=== PATIENT | female | born 1945 | race Caucasian/White ===

== ENCOUNTER 2020-03-30 09:30 | Outpatient (RCR) | payer MEDICARE, SELFPAY ==
--- NOTE | 2020-01-21 10:43 | PTOPEVAL ---
Addendum entered by Jagruti Ragland, PT 01/21/20 11:03: will plan for treatment 2-3x/week, to monitor changes and adapt treatments, as radiation treatments progress. Original Note: PHYSICAL THERAPY EVALUATION AND PLAN OF CARE 01-21-2020 The PT evaluation was completed and the plan of treatment is scheduled for 2x/week for 5 weeks. Thank you for referring Romina Del Cid to [facility]. Please review, sign, date and return this plan of care JAZ. I agree with and certify that the following plan of care is medically necessary. Referring Physician Date Attending Provider: Juan Manuel Webber MD *PT Outpatient Evaluation Start: 01/21/20 09:35 Document 01/21/20 09:35 [facility] (Rec: 01/21/20 10:42 [facility] [id number]) Outpatient Past Medical History Past Medical History Source of Past Medical History Patient Neurological History Hx Neurological Disorders No Significant History Cardiovascular History Hx Cardiac Disorders No Significant History Respiratory History Hx Respiratory Disorders No Significant History Gastrointestinal History Hx Gastrointestinal Disorders No Significant History Genitourinary History Hx Genitourinary Disorders No Significant History Musculoskeletal History Hx Musculoskeletal Disorders No Significant History Hematological History Hx Hematological Disorders No Significant History Endocrine History Hx Endocrine Disorders No Significant History HEENT History Hx Dental Problems Yes: UPPER PLATE, LOWER DENTURES Hx Other HEENT Disorders Yes: GLASSES Integumentary History Hx Skin Disorders No Significant History Reproductive History Hx Hormone Therapy Yes Hx Other Reproductive Disorders Yes: RT BREAST BX JUL 2019 = RT BREAST CA Psychosocial History Hx Recent Lifestyle Changes Yes: RT BREAST CA DX JUL 2019 Pain History History of Any Previous or Ongoing No Significant History Instance of Pain Anesthesia History Hx Anesthesia Reactions No Significant History Other History Hx Cancer Yes: RT BREAST CA DX JUL 2019 Evaluation Information Problem Diagnosis R breast lymphedema Onset Jul 2019 Prior Level of Function Activity Level (Last 3 Months) Occupation retired Hand Dominance Right Activity of Daily Living Ability Independent Indoor/Home Mobility Independent Community Mobility Independent Stairs Ability Independent Functional Cognition (Planning, Shopping Independent , Taking Medications) Cooking Yes Cleaning Yes Laundry Yes Shopping Yes Driving Yes Home Setting Home Type House
--- NOTE | 2020-02-25 10:59 | PTOPEVAL ---
PHYSICAL THERAPY REEVALUATION AND UPDATED PLAN OF CARE 02-25-2020 Mrs. Del Cid has received 11 PT sessions, from January 20 to today, for the diagnosis of R UE and trunk lymphedema. Compared to the initial evaluation: circumferential measurement of R UE has decreased by 16.8 cm; tissue of R UE is without any fibrosis and has good color; she has a compression sleeve for her R UE- is independent with it and it is comfortable to her; R shoulder AROM and strength have improved with all motions; her posterior trunk scar has improved mobility with decreased adhesions; there is minimal upper-lateral trunk edema. The radiation skin discoloration has increased--redness and brownish color over R anterior trunk, axilla, lateral trunk to posterior trunk, to superior aspect of trunk scar. The skin is moist, without any flaking. Romina is doing well managing her lymphedema: is wearing a compression bra, using swell pad over lateral trunk, wearing compression sleeve with 20-30 mmHg and doing her self lymph drainage and shoulder exercises. PT is to continue 1-2x/week for 5 weeks, to continue treatment as her radiation treatments continue. Thank you for referring Romina Del Cid to [facility]. Please review, sign, date and return this plan of care JAZ. I agree with and certify that the following plan of care is medically necessary. Referring Physician Date Attending Provider: Juan Manuel Webber MD CC: Carly Syed MD, per pt request *PT Outpatient Re-Evaluation Document 02/25/20 10:03 [facility] (Rec: 02/25/20 10:47 [facility] [id number]) Subjective Information Romina reports: stiff and Query Text:As Reported By Patient/ tight skin; sleeve and arm are Family doing well; radiation continues to March 14; is pleased with her improvements and wants to continue therapy. Pain Assessment Timing of Pain Assessment Timing of Pain Assessment Assessment Pain Scale Pain Scale Used Numeric (1 - 10) Self Report Pain Assessment Right Shoulder(s) Reported Pain Level 2 Pain Description Soreness,Tightness Pain Frequency Acute Other Pain Description skin is tight and stiff over shoulder and breast Pain Score Pain Score 2: Self Report Upper Extremity Range of Motion Scapular/ Shoulder Range of Motion Right Shoulder Flexion - Active 130 Shoulder Abduction - Active 120 Shoulder Medial Rotation - Active palm above waist Query Text:Reach Behind the Back Shoulder Lateral Rotation - Active palm to back of head Query Text:Reach Behind the Head Scapular/Shoulder Range of Motion no increase pain with shoulder Comments motions; elbow, wrist and hand WNL, no c/o pain; Lymphedema Evaluation Skin Inspection Location Right Upper Extremity,Right Anterior Lower Quadrant,Right
--- NOTE | 2020-03-30 10:09 | PTOPEVAL ---
PHYSICAL THERAPY DISCHARGE 03-30-2020 Mrs. Del Cid has received 16 PT sessions, from January 20 to today, for the diagnosis of lymphedema. She has a 20-30 mmHg compression sleeve for her R arm, which is maintaining her edema and wearing a compression bra with lateral swell pad. Her skin color has improved, but still has some radiation discoloration over anterior and lateral trunk. Education has been completed with Romina for lymphedema self care. Her R shoulder flexion and abduction active ranges of motion and strength have improved and she reports being able to do everything around the house. Thank you for referring Romina Del Cid to [facility]. Please review, sign, date and return this discharge JAZ. I agree with and certify that the following plan of care is medically necessary. Referring Physician Date Attending Provider: Juan Manuel Webber MD *PT Discharge Document 03/30/20 09:30 [facility]OS[facility] (Rec: 03/30/20 10:09 [facility] [id number]) Subjective Information Romina reports: arm and chest Query Text:As Reported By Patient/ are less sore and tender; Family doing exercises, using compression sleeve, doing all of her home chores without any problems; feels like ready for discharge from PT; Pain Assessment Timing of Pain Assessment Timing of Pain Assessment Assessment Self Report Self Report Pain Level 0 Pain Score Pain Score 0: Self Report Additional Pain Score Comments only slight tightness over arm and trunk; Upper Extremity Range of Motion General Upper Extremity Range of Motion Gross Upper Extremity Range of Motion active R shoulder in standing: Comments flexion 130', abduction 100', IR- reach behind back, hand above waist; ER- reach to back of head; elbow, wrist and hand WNL; Lymphedema Evaluation Skin Inspection Location Right Upper Extremity,Right Anterior Lower Quadrant,Right Anterior Upper Quadrant,Right Posterior Lower Quadrant,Right Posterior Upper Quadrant Skin Observations Hyperplasia,Radiation Discoloration Lymphedema Stage II Skin Inspection Comment R UE skin with good color and integrity; R trunk: anterior with minimal red-brown radiation discoloration; minimal ededma over upper-lateral trunk with adhesions along horizontal trunk scar; posterior trunk
== END 2020-04-05 11:34 | disposition home or self-care (01) ==
LOC: ANHPT 09:30
PROVIDERS: Visit Provider Radiology Radiation Oncology
DX: I97.2 Postmastectomy lymphedema syndrome (principal); C50.411 Malignant neoplasm of upper-outer quadrant of right female breast
CPT/HCPCS: 97110; 97140; 97162

== ENCOUNTER 2020-06-21 10:46 | Outpatient (CLI) | payer MEDICARE, SELFPAY ==
--- NOTE | ~2020-06-21 | PE_ITS ---
EXAMINATION: PET skull to mid thigh DATE: 06/21/2020 13:19 INDICATION: Right breast cancer with axillary lymphadenopathy TECHNIQUE: Blood glucose level was 100 mg/dL. 8.84 mCi of 18-fluorodeoxyglucose (18-FDG) was administ ered i.v. Low dose computed tomography (CT) images were acquired from the base of the brain to the pr oximal thighs for attenuation correction and anatomic localization. Positron emission tomography (PET ) images were acquired in the same distribution beginning 77 minutes after injection. The dose-length product (DLP) was 691 mGy-cm. COMPARISON: 08/18/2019 FINDINGS: Head/neck: No abnormal FDG uptake is identified. FDG activity in the oral cavity without suspicious C T correlate is likely physiologic. Chest: There are changes of interval right mastectomy and axillary lymph node dissection. There are t wo areas of surgical clips in the right axilla. There is ill-defined soft tissue density surrounding the more cranial axillary surgical clips with low-level FDG uptake and SUV max of 3.2. There is an ap proximately 3.8 x 1.4 cm area of intermediate attenuation in the right lateral chest wall/low axillar y region with associated more caudal surgical clips which demonstrates SUV uptake with an SUV max of 7.8. There is skin thickening of the right chest wall with mild associated FDG uptake. A small right pleural effusion is present. There is volume loss in the right hemithorax. There are subpleural airsp patric opacities in the anterior aspect of the right lung as well as posteriorly in the right lower lobe which demonstrate associated FDG uptake. The heart size is normal. There is no pneumothorax. A left internal jugular Port-A-Cath ends with its tip in the proximal superior vena cava. Abdomen/pelvis/proximal thighs: Physiologic FDG activity is present in the bowel and urinary tract. N o abnormal FDG uptake is identified. The liver, spleen, pancreas, adrenal glands, and kidneys are nor mal. No pathologically enlarged abdominal or pelvic lymph nodes are identified. There is no free intr aperitoneal gas or evidence of bowel obstruction. 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 IMPRESSION: 1. Changes of interval mastectomy and right axillary lymph node dissection. Mild FDG uptake adjacent to the more cranial of the right axillary surgical clips is likely post surgical in nature. FDG activ ity surrounding the more caudal of the surgical clips is indeterminate, postsurgical versus residual malignancy. 2. Subpleural airspace opacities of the right lung with FDG uptake, likely inflammatory and/or radiat ion change. 3. Small right pleural effusion. Reviewed, dictated and finalized at location B. IMPRESSION: 1. Changes of interval mastectomy and right axillary lymph node dissection. Mil d FDG uptake adjacent to the more cranial of the right axillary surgical clips is likely post surgical in nature. FDG activity surrounding the more caudal of the surgical clips is indeterminate, postsurgical versus residual malignancy. 2. Subpleural airspace opacities of the right lung with FDG uptake, likely infl ammatory and/or radiation change. 3. Small right pleural effusion.
[2020-06-21 11:31] LABS: Glucose Point of Care 100 (65-105)
== END 2020-06-21 10:47 | disposition home or self-care (01) ==
LOC: ANHIMG 10:51
PROVIDERS: Visit Provider Internal Medicine Hematology & Oncology
DX: C50.919 Malignant neoplasm of unspecified site of unspecified female breast (principal); J90 Pleural effusion, not elsewhere classified; R91.8 Other nonspecific abnormal finding of lung field
CPT/HCPCS: 78815; A9552

== ENCOUNTER 2020-11-10 07:24 | Outpatient (CLI) | payer MEDICARE, SELFPAY ==
--- NOTE | ~2020-11-10 | CT_ITS ---
EXAMINATION: CT chest abdomen pelvis w con EXAM DATE: 11/10/2020 08:12 INDICATION: Malignant neoplasm, metastatic to lymph node of axilla. Breast cancer. TECHNIQUE: Spiral CT of the chest, abdomen and pelvis was performed following intravenous injection o f 100 mL Omnipaque 350. Axial, coronal and sagittal images were reviewed. Coronal maximum intensity pixel images of chest reviewed. The dose-length product (DLP) for this examination was 985.82 mGy-c m. The exposure was tailored according to patient size (auto mA exposure control), and iterative rec onstruction (ASIR) was used as additional dose reduction technique. Comparison is made to prior exami nation from 07/18/2019. Correlation was made with PET/CT 06/21/2020. FINDINGS: CHEST: There is a left-sided Chemo-Port. Surgical changes from right-sided mastectomy and axillary l ymph node dissection appears stable correlating to PET/CT from June. There is near resolution of previously seen confluent peripheral right lung opacity and right pleural effusion. There is scatter ed bilateral regions of small ill-defined peripheral opacities which are new compared to prior study; patient may have had interval infectious process, possibly subacute to chronic COVID pneumonia. No p ericardial or left pleural effusions. Tracheobronchial tree is patent. There is no mediastinal, hi lar or axillary lymphadenopathy. There is no pneumothorax. Heart normal in size. No evidence of coronary arterial calcification. There is small sliding gastroesophageal hiatal hernia. ABDOMEN PELVIS: The liver, spleen, adrenal glands and pancreas are unremarkable. Gallbladder is unre markable. No biliary obstruction. Portal and splenic veins are patent. Kidneys enhance symmetrical ly. There is no hydronephrosis. The uterus is unremarkable. Dilated left gonadal veins could indic ate pelvic congestion syndrome. The bladder is unremarkable. There is no retroperitoneal or pelvic lymphadenopathy. There is mild scattered arteriosclerotic disease. The appendix is normal. The stomach and small bowel are unremarkable. There is expected amount of c olonic stool. No free intraperitoneal gas. There are no osteoblastic or osteolytic lesions identi fied. Mild to moderate lumbar dextroscoliosis. IMPRESSION: 1. Development of scattered small peripheral opacities, possible subacute or chronic COVID pneumonia . 2. Previously seen right peripheral anterior airspace disease which could have been treatment relate d change or infection, and right pleural effusions have nearly resolved. 3. Chronic findings without definite metastatic disease. Reviewed, dictated and finalized at location A. PER REWINDER IMPRESSION: 1. Development of scattered small peripheral opacities, possible subacute or c hronic COVID pneumonia. 2. Previously seen right peripheral anterior airspace disease which could have been treatment related change or infection, and right pleural effusions have n early resolved. 3. Chronic findings without definite metastatic disease.
== END 2020-11-10 07:25 | disposition home or self-care (01) ==
PROVIDERS: Visit Provider Internal Medicine Hematology & Oncology
DX: C77.3 Secondary and unspecified malignant neoplasm of axilla and upper limb lymph nodes (principal); R91.8 Other nonspecific abnormal finding of lung field
CPT/HCPCS: 71260; 74177; Q9967

== ENCOUNTER 2021-01-25 09:24 | Outpatient (CLI) | payer MEDICARE, SELFPAY ==
--- NOTE | ~2021-01-25 | MM_ITS ---
EXAMINATION: MM screening paul LT w cheryl HISTORY: Screening TECHNIQUE: Craniocaudal and mediolateral oblique 3-D tomosynthesis images were obtained and synthetic 2-D images were generated. CAD analysis was submitted and interpreted. COMPARISON: Comparison to multiple prior studies sequentially, with oldest reviewed study dated 07/15. BREAST PARENCHYMAL COMPOSITION: There are scattered areas of fibroglandular density. FINDINGS: The right breast is surgically absent. There is no evidence of suspicious mass, calcificati on, or architectural distortion to suggest malignancy in the left breast. There has been no suspiciou s interval change. IMPRESSION: 1. No mammographic evidence of malignancy. 2. Recommend routine screening mammography in one year. BI-RADS Category 1: Negative Reviewed, dictated and finalized at location A.
== END 2021-01-25 09:25 | disposition home or self-care (01) ==
LOC: ANHIMG 09:26
PROVIDERS: PCP Internal Medicine Hematology & Oncology; Visit Provider Radiology Radiation Oncology
DX: Z12.31 Encounter for screening mammogram for malignant neoplasm of breast (principal); Z85.3 Personal history of malignant neoplasm of breast
CPT/HCPCS: 77063; 77067

== ENCOUNTER 2021-04-24 03:13 | Day surgery (SDC) | payer MEDICARE, SELFPAY ==
[2021-04-20 11:45] VITALS: BMI 28.5
--- NOTE | 2021-04-24 08:18 | PM.HPGS ---
History of Present Illness History of Present Illness Consent: Risks, benefits, and alternatives of removal of a Port-A-Cath have been discussed and questions answered. Patient agrees to proceed with procedure. Chief complaint: Breast CA Narrative: Romina Del Cid is a 75 year old female who has been following with Dr. Valorie cedeno. 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 She had a port and then chemotherapy with Cytoxan and Taxotere started September 2019 and completed in November of 2019. She has since that time continue I brands and Arimidex. She is doing well and no longer in need of the Port-A-Cath. Review of Systems Constitutional: Constitutional: Reports no additional constitutional complaints, Reports fatigue and Denies malaise Eyes: Eyes: Denies change in vision and Denies loss of vision ENT: Reports Normal hearing present, Denies change in voice, Denies dizziness, Denies hoarseness and Denies sore throat Cardiovascular: Cardiovascular: Denies chest pain, Denies leg edema and Denies dyspnea Respiratory: Respiratory: Denies cough, Denies dyspnea and Denies wheezing Gastrointestinal: Gastrointestinal: Denies hematochezia, Denies change in bowel habits and Denies heartburn Genitourinary: Genitourinary: Denies urinary frequency and Denies urinary incontinence Integumentary/Breasts: Comments: Patient has been fighting breast cancer since 2018. She had a mastectomy on the right in December of 2019. Since that time she has had chemotherapy and radiation treatments to the right chest wall. Neurologic: Reports Normal hearing present, Denies confusion, Denies dizziness, Denies loss of vision, Denies memory loss and Denies seizure-like activity Psychiatric: Psychiatric: Denies confusion, Denies depression and Denies memory loss Endocrine: Endocrine: Denies cold intolerance and Reports fatigue Hematologic/Lymphatic: Hematologic/Lymphatic: Denies easy bleeding and Denies easy bruising Comments: History of anemia followed by Dr. Del Real. Allergic/Immunologic: Allergic/Immunologic: Denies wheezing PMFSH Past Medical History Medical History (Updated 04/24/21 @ 08:36 by Matthew Johnston MD) Anemia Breast CA (~07/2019) Port-A-Cath in place Surgical History Surgical History (Updated 04/24/21 @ 08:29 by Matthew Johnston MD) Hx of right mastectomy Social History Social History Smoking status: Never smoker Alcohol intake: current Drinks per week: 3 Living arrangements: with family Gender identity (if verbalized by the patient): Female Spiritual care concerns: No Meds Home Medications and Allergies Home Medications Medication Instructions Recorded Confirmed Type turmeric root extract 500 mg PO BID 08/26/19 04/24/21 History anastrozole [Arimidex] 1 mg PO DAILY 06/01/20 04/24/21 History palbociclib [Ibrance] 125 mg PO DAILY 08/31/20 04/24/21 History ferrous sulfate 325 mg PO DAILY 04/20/21 04/24/21 History multivitamin,[id number] 1 tablet PO DAILY 04/20/21 04/24/21 History [Complete Multivitamin] Allergies Allergy/AdvReac Type Severity Reaction Status Date / Time No Known Allergies Allergy Verified 04/20/21 11:34 Exam Const: General: cooperative, healthy appearing, no acute distress, well developed and alert; No confusion Nutritional Appearance: well nourished Orientation/consciousness: patient oriented x3 and No confusion Limitations: no limitations HENMT: Head: normal to inspection, normocephalic and atraumatic Ears: hearing grossly normal bilaterally General nose exam: Normal external nose present Face and sinus: no edema Mouth: Yes Normal oral and palatal mucosa present and Yes lip normal Throat: posterior oropharynx normal Eyes: General: appearance normal, both eyes and all related structures Sclera: sclerae normal Pupils: Equal, round
[2021-04-24 13:10] VITALS: BP 174/88; PULSE 77; RESP 0; TEMP 36.2; O2SAT 100
--- NOTE | 2021-04-24 14:15 | WPDHPUPDATE1 ---
History and Physical Update Update Date/Time: 04/24/21 14:15 History and Physical has been reviewed, including an updated exam of the patient. There are NO changes in the patient's condition. Risks, benefits, and alternatives have been discussed and questions answered. Patient agrees to proceed with procedure.
[2021-04-24 14:44] VITALS: BP 200/95; PULSE 70; RESP 16; O2SAT 100
[2021-04-24] MEDS: LIDO 1%/EPINEPHRINE 1:100,000 20 ML VIAL 10 ML INFILTRATE (14:48)
[2021-04-24 14:50] VITALS: BP 219/90; PULSE 70; RESP 20; O2SAT 99
[2021-04-24 15:04] VITALS: BP 219/92; PULSE 70; RESP 20; O2SAT 100
[2021-04-24 15:12] VITALS: BP 184/86; PULSE 67; RESP 16; O2SAT 100
--- NOTE | 2021-04-24 15:21 | P.OP_ITS ---
Procedure Note - Detailed Date of Procedure 04/24/21 Pre-op Diagnosis Breast CA Post-op Diagnosis same Procedure Performed Removal of [place]-cath Surgeon Matthew Johnston MD Greige Goods Inspector [ ] RN, OR Vault Installer Anesthesia MAC and local (2% Xylocaine with Epi) Indications Patient has had a Port-A-Cath in for chemotherapy in the past. Now no longer in use and when attempted to be flushed recently was plugged. Plant to remove under local anesthetic. Findings Unremarkable port and catheter upon removal. blue Prolene stitches anchoring the port were also removed. Description of Procedure Prior to the procedure the patient was seen in the holding area and the area of proposed surgery was marked. All questions were answered and the patient wished to proceed with removal of the Port-A-Cath. The patient was brought to the operating room and placed supine. The entire left neck, chest, and shoulder were prepped with chlorhexidine. The area was draped off. Time-out was performed confirming patient and site of surgery. Following this a 15 blade knife was used to make incision directly on the scar from the previous port placement. This was done after infiltrating local anest hetic into the area of and inferior to the scar and into the area of the pocket containing the port to some degree using 1% xylocaine with epinephrine. Following this we carefully dissected down to the junction of the port and catheter. Bovie cautery with needle-tip was used to carefully incise the capsule around the port and free up the scar tissue around the junction of the port and catheter. Two Prolene sutures that were holding the port to the underlying fascia were carefully excised with a 15 blade knife and mosquito hemostats. Following this the port was brought up and out of the pocket. Then watching the patient's respirations I carefully removed the catheter in one smooth pull while applying pressure in the lower right neck area at the catheter exit site as the patient was breathing out. Pressure was held for 1 minute. I used Bovie cautery on some the subcutaneous tissues as we waited for good clotting. Again hemostasis was checked in the wound using Bovie cautery for s uperficial hemostasis in the subcutaneous tissues. Following this closure was obtained with 2 layers. I used buried subcutaneous sutures of 3-0 Vicryl in the subcutaneous layer followed by a running subcuticular closure of 4-0 Monocryl on the skin. Patient tolerated the procedure well. Estimated blood loss was 3 cc Sponge, needle, and instrument counts were correct at the end the procedure and patient was taken to the outpatient recovery area in good condition. Implants none Estimated Blood Loss 3 Drains No Packing No Pathology none sent Complications No immediate complications Condition stable Disposition same day
[2021-04-24 15:33] VITALS: BP 161/77; PULSE 68
== END 2021-04-24 15:48 | disposition home or self-care (01) ==
PROVIDERS: PCP Internal Medicine Hematology & Oncology; Visit Provider Surgery
PROC: (CPT 36589; principal; 2021-04-24 14:00)
DX: Z45.2 Encounter for adjustment and management of vascular access device (principal); Z85.3 Personal history of malignant neoplasm of breast; Z92.21 Personal history of antineoplastic chemotherapy; D64.9 Anemia, unspecified; Z90.11 Acquired absence of right breast and nipple
CPT/HCPCS: 36590

== ENCOUNTER 2021-09-14 08:53 | Outpatient (CLI) | payer MEDICARE, SELFPAY ==
--- NOTE | ~2021-09-14 | CT_ITS ---
EXAMINATION: CT diagnostic chest w con EXAM DATE: 09/14/2021 09:22 INDICATION: Malignant neoplasm metastatic to lymph node of axilla. TECHNIQUE: Spiral CT of the chest following intravenous injection of 75 mL Omnipaque 350. Axial, cor onal and sagittal images of the chest were reviewed. Coronal maximum intensity pixel images of chest reviewed. The dose-length product (DLP) for this examination was 172.51 mGy-cm. The exposure was t ailored according to patient size (auto mA exposure control), and iterative reconstruction (ASIR) was used as additional dose reduction technique. Comparison is made to prior examination from 11/10/2020. FINDINGS: Postoperative changes to the right breast and axilla without discrete lymphadenopathy ident ified. Soft tissue surrounding the right axillary lymph nodes probably scar tissue does not appear si gnificantly changed. There are scattered regions of peripheral airspace disease on previous examination, mostly resolved. Only small region of persistent airspace disease in the left lower lobe today, probably postinfectiou s. There is mild emphysema and hyperinflation. Mild ectasia of the ascending aorta at 4.3 cm. There are no pleural or pericardial effusions. Tracheobronchial tree is patent. There is no mediastinal , hilar or axillary lymphadenopathy. There is no pneumothorax. Heart normal in size. There is s mall sliding gastroesophageal hiatal hernia. Patient has diffuse idiopathic skeletal hyperostosis. IMPRESSION: 1. No evidence of metastatic disease. 2. Stable right breast, axillary surgical changes. 3. Mild emphysema and hyperinflation. 4. Mild ascending aortic ectasia. 5. Small hiatal hernia. Reviewed, dictated and finalized at location A. EL ACCOMMODATION INSPECTOR
[2021-09-14 09:12] LABS: Estimated Glomerular Filt Rate 54
== END 2021-09-14 08:54 | disposition home or self-care (01) ==
LOC: ANHIMG 08:57
PROVIDERS: PCP Internal Medicine Hematology & Oncology; Visit Provider Internal Medicine Hematology & Oncology
DX: C77.3 Secondary and unspecified malignant neoplasm of axilla and upper limb lymph nodes (principal); J43.9 Emphysema, unspecified; K44.9 Diaphragmatic hernia without obstruction or gangrene; R91.8 Other nonspecific abnormal finding of lung field
CPT/HCPCS: 71260; Q9967

== ENCOUNTER 2022-02-01 08:40 | Outpatient (CLI) | payer MEDICARE, SELFPAY ==
--- NOTE | ~2022-02-01 | MM_ITS ---
EXAMINATION: MM screening paul LT w cheryl HISTORY: Screening mammogram TECHNIQUE: Craniocaudal and mediolateral oblique 3-D tomosynthesis images were obtained and synthetic 2-D images were generated. CAD analysis was submitted and interpreted. COMPARISON: 01/25/2021 left screening mammogram 09/01/2019 diagnostic left mammogram and limited left breast ultrasound examination 08/07/2019 left screening mammogram BREAST PARENCHYMAL COMPOSITION: There are scattered areas of fibroglandular density. FINDINGS: There is no evidence of suspicious mass, calcification, or architectural distortion to sugg est malignancy in either breast. There has been no suspicious interval change. IMPRESSION: 1. No mammographic evidence of malignancy. 2. Recommend routine screening mammography in one year. BI-RADS Category 1: Negative Reviewed, dictated and finalized at location A.
== END 2022-02-01 08:41 | disposition home or self-care (01) ==
LOC: ANHIMG 08:43
PROVIDERS: PCP Internal Medicine Hematology & Oncology; Visit Provider Internal Medicine Hematology & Oncology
DX: Z12.31 Encounter for screening mammogram for malignant neoplasm of breast (principal)
CPT/HCPCS: 77063; 77067

== ENCOUNTER 2022-02-08 09:31 | Outpatient (CLI) | payer MEDICARE, SELFPAY ==
--- NOTE | ~2022-02-08 | CT_ITS ---
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 Additional 3D reconstructions utilizing coronal maximum intensity projection (MIP) were per formed. Automated exposure control and iterative reconstruction technique were employed. The dose-ricci gth product was 223.66 mGy-cm. COMPARISON: 09/14/2021 FINDINGS: Postoperative change of prior right mastectomy and associated right axillary lymph node dissection. T here is minimal peripheral likely radiation fibrosis along the anterior right upper lobe. There are c ouple small calcified nodules in the left lung consistent with old granulomatous disease. No pneumoni a, suspicious pulmonary nodules, pulmonary edema or pleural effusion. Heart size is normal. No perica rdial effusion. Mild fusiform ectasia of the ascending thoracic aorta measuring 4.2 x 4.2 cm in maxim al diameter. Normal caliber aortic arch and descending thoracic aorta. No dissection. No pathological ly enlarged thoracic lymphadenopathy. Small sliding-type hiatal hernia. Unchanged subcentimeter cyst at the upper pole of the right kidney. There are bridging osteophytes at multiple levels in the spine , consistent with diffuse idiopathic skeletal hyperostosis (DISH). IMPRESSION: 1. Ectatic ascending thoracic aorta measuring up to 4.2 cm in maximal diameter. 2. Postoperative change of prior right mastectomy and axillary lymph node dissection with likely mini mal radiation fibrosis along the anterior right upper lobe. 3. Small sliding-type hiatal hernia. Reviewed, dictated and finalized at location B. IMPRESSION: 1. Ectatic ascending thoracic aorta measuring up to 4.2 cm in maximal diameter. 2. Postoperative change of prior right mastectomy and axillary lymph node disse ction with likely minimal radiation fibrosis along the anterior right upper lob e. 3. Small sliding-type hiatal hernia.
== END 2022-02-08 09:32 | disposition home or self-care (01) ==
PROVIDERS: PCP Internal Medicine Hematology & Oncology; Visit Provider Internal Medicine Hematology & Oncology
DX: C77.3 Secondary and unspecified malignant neoplasm of axilla and upper limb lymph nodes (principal); I77.810 Thoracic aortic ectasia; Z98.890 Other specified postprocedural states; Z90.11 Acquired absence of right breast and nipple; K44.9 Diaphragmatic hernia without obstruction or gangrene
CPT/HCPCS: 71260; Q9967

== ENCOUNTER 2022-03-22 11:56 | Outpatient (CLI) | payer MEDICARE, SELFPAY ==
[2022-03-22 16:26] LABS: Alanine Aminotransferase 17 U/L (6-35); Albumin Level 4.3 g/dL (3.5-5.1); Alkaline Phosphatase 94 U/L (38-126); Anion Gap 5 mmol/L (8-16); Aspartate Amino Transferase 21 U/L (14-36); Blood Urea Nitrogen 14 mg/dL (7-17); Calcium 9.9 mg/dL (8.4-10.2); Carbon Dioxide 27 mmol/L (22-30); Chloride 103 mmol/L (98-107); Estimated Glomerular Filt Rate > 60; Glucose 91 mg/dL (65-110); Potassium 4.8 mmol/L (3.4-5.0); Sodium 135 mmol/L (137-145)
[2022-03-25 05:25] LABS: CA 15-3 16 U/mL (<32)
== END 2022-03-22 11:57 | disposition home or self-care (01) ==
LOC: ANHLAB 11:58
PROVIDERS: PCP Internal Medicine Hematology & Oncology; Visit Provider Internal Medicine Hematology & Oncology
DX: C77.3 Secondary and unspecified malignant neoplasm of axilla and upper limb lymph nodes (principal)
CPT/HCPCS: 36415; 80053; 86300

== ENCOUNTER 2022-03-29 12:21 | Outpatient (CLI) | payer MEDICARE, SELFPAY ==
[2022-03-29 12:46] LABS: Basophils Percent Auto 1.6 % (0.2-1.2); Eosinophils Absolute Auto 0.1 K/mm3 (0-0.3); Eosinophils Percent Auto 2.6 % (0-4.4); Hematocrit 34.1 % (37.0-47.0); Hemoglobin 11.8 g/dL (12.0-15.0); Immature Granulocyte Absolute 0.01 K/mm3 (0.00-0.031); Immature Granulocyte Percent A 0.5 % (0-0.5); Lymphocytes Absolute Auto 0.36 K/mm3 (0.9-3.2); Lymphocytes Percent Auto 18.8 % (18.3-44.2); Mean Corpuscular HGB Conc 34.6 g/dl (32-36); Mean Corpuscular Hemoglobin 38.4 pg (26-34); Mean Corpuscular Volume 111.1 fl (80-100); Mean Platelet Volume 9.9 fl (7.4-10.4); Monocytes Absolute Auto 0.2 K/mm3 (0.1-0.6); Monocytes Percent Auto 10.9 % (2.6-8.5); Neutrophils Absolute Auto 1.3 K/mm3 (1.3-6.7); Neutrophils Percent Auto 65.6 % (45.5-73.1); Platelet Count Result 128 k/mm3 (150-375); Red Blood Count 3.07 M/mm3 (4.2-5.4); Red Cell Distribution Width 13.7 % (11.5-14.5)
[2022-03-29 12:48] LABS: White Blood Count 1.9 K/mm3 (4.5-10.0)
== END 2022-03-29 12:22 | disposition home or self-care (01) ==
LOC: ANHLAB 12:23
PROVIDERS: PCP Internal Medicine Hematology & Oncology; Visit Provider Internal Medicine Hematology & Oncology
DX: C77.3 Secondary and unspecified malignant neoplasm of axilla and upper limb lymph nodes (principal)
CPT/HCPCS: 36415; 85025

== ENCOUNTER 2022-05-31 10:05 | Outpatient (CLI) | payer MEDICARE, SELFPAY ==
--- NOTE | ~2022-05-31 | CT_ITS ---
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 TECHNIQUE: Computed tomography (CT) of the chest was performed with 75 mL Omnipaque 350 intravenous c ontrast. Automated exposure control and iterative reconstruction technique were employed. The dose-le ngth product (DLP) was 159.89 mGy-cm. COMPARISON: Chest CT 02/08/2022 FINDINGS: There is mild peripheral radiation fibrosis in anterolateral right lung. There is mild scar ring in paraspinal right lower lobe. Calcified pulmonary nodules are consistent with old granulomatou s disease. No pleural effusion. The heart size is normal. No pericardial effusion. There are surgical changes of right mastectomy. There is fat stranding and skin thickening in the right breast and righ t axilla, consistent with changes of surgery and radiation therapy. There are no pathologically enlar ged lymph nodes. There is stable ectasia of ascending aorta measuring 4.4 cm. There are bridging endp late osteophytes at multiple levels in the spine, consistent with diffuse idiopathic skeletal hyperos tosis (DISH). There is mild chronic anterior wedging of multiple thoracic vertebral bodies. IMPRESSION: 1. No specific evidence of metastatic disease. Reviewed, dictated and finalized at location A.
== END 2022-05-31 10:06 | disposition home or self-care (01) ==
PROVIDERS: PCP Internal Medicine Hematology & Oncology; Visit Provider Internal Medicine Hematology & Oncology
DX: C77.3 Secondary and unspecified malignant neoplasm of axilla and upper limb lymph nodes (principal)
CPT/HCPCS: 71260; Q9967

== ENCOUNTER 2022-08-23 09:39 | Outpatient (CLI) | payer MEDICARE, SELFPAY ==
--- NOTE | ~2022-08-23 | DEXA_ITS ---
Bone Density Report Name: SORAYA OTERO Age: 77 Sex: Female Ethnicity: White Date of : 1945 Indication: postmenopausal; screening for osteoporosis; height loss; cancer; Referring Provider: STEPHANIE CARNES Study: Bone densitometry was performed. Exam Date: August 23, 2022 Accession number: [id number] Bone Density: Region BMD T-score Z-score Classification AP Spine(L1-L4) 1.142 0.9 3.4 Normal Femoral Neck (Left) 0.726 -1.1 1.1 Osteopenia Total Hip (Left) 0.838 -0.9 1.0 Normal Femoral Neck (Right) 0.745 -0.9 1.2 Normal Total Hip (Right) 0.873 -0.6 1.3 Normal Total Hip Mean 0.856 -0.8 1.2 Normal World Health Organization criteria for BMD impression classify patients as: Normal (T-score at or above -1.0), Osteopenia (T-score between -1.0 and -2.5), or Osteoporosis (T-score at or below -2.5). 10-year Fracture Risk(1): Major Osteoporotic Fracture 11% Hip Fracture 1.9% Reported Risk Factors: [place] (), Neck BMD=0.726, BMI=30.1 (1) FRAX(R) Version 3.08. Fracture probability calculated for an untreated patient. Fracture probability may be lower if the patient has received treatment. Clinical Information Provided by Patient: Has the following medical conditions: Cancer, hx of BCA Patient maximum height was 66 Menopause Age: 40 Onset of menses at age 12 Number of children 2 Impression: The patient has low bone mass, based on the Left Femoral Neck T-score. The patient has an estimated ten-year risk of hip fracture of 1.9% and an estimated ten-year risk of major fracture of 11%, based on the WHO FRAX algorithm. Discussion: BONE DENSITY IS LOW AT ONE OR MORE SKELETAL SITES. This patient's lowest T-score is low at one or more skeletal sites. It meets the World Health Organization's (WHO) criteria for ?low bone mass? (T-score between -1.0 and -2.5). The patient's 10-year risk of fracture as calculated by FRAX is less than the threshold where pharmacological therapy is recommended by the National Osteoporosis Foundation (NOF). However, all treatment decisions require clinical judgment and consideration of individual patient factors, including patient preferences, comorbidities, previous drug use, risk factors not captured in the FRAX model (e.g., frailty, falls, vitamin D deficiency, increased bone turnover, interval significant decline in bone density) and possible under or overestimation of fracture risk by FRAX. The patient should follow a healthful lifestyle (good nutrition with adequate calcium and vitamin D, and appropriate weight-bearing exercise). Follow-Up: Consider repeating this study in 2 to 3 years to reassess this patient's status, or sooner if there is some new clinical indication. Reported by: LAZARA on 08/23/2022 10:09:00 AM.
== END 2022-08-23 09:40 | disposition home or self-care (01) ==
PROVIDERS: PCP Internal Medicine Hematology & Oncology; Visit Provider Internal Medicine Hematology & Oncology
DX: M85.852 Other specified disorders of bone density and structure, left thigh (principal)
CPT/HCPCS: 77080

== ENCOUNTER 2022-11-22 11:13 | Outpatient (CLI) | payer MEDICARE, SELFPAY ==
[2022-11-22 21:18] LABS: Cholesterol 227 mg/dL (0-200); HDL Direct 100 mg/dL; Triglycerides 68 mg/dL (<150)
[2022-11-22 21:28] LABS: LDL Cholesterol Direct 81 mg/dL
== END 2022-11-22 11:14 | disposition home or self-care (01) ==
LOC: ANHLAB 11:22
PROVIDERS: PCP Emergency Medicine; Visit Provider Emergency Medicine
DX: I10 Essential (primary) hypertension (principal); Z92.3 Personal history of irradiation
CPT/HCPCS: 36415; 80053; 80061; 84443; 85025; 86300

== ENCOUNTER 2023-02-05 10:29 | Outpatient (CLI) | payer MEDICARE, SELFPAY ==
--- NOTE | ~2023-02-05 | MM_ITS ---
EXAMINATION: MM screening paul LT w cheryl HISTORY: Screening mammogram TECHNIQUE: Craniocaudal and mediolateral oblique 3-D tomosynthesis images were obtained and synthetic 2-D images were generated. CAD analysis was submitted and interpreted. COMPARISON: February 01, 2022, January 25, 2021 bilateral screening mammogram examination BREAST PARENCHYMAL COMPOSITION: There are scattered areas of fibroglandular density. FINDINGS: There is no evidence of suspicious mass, calcification, or architectural distortion to sugg est malignancy in either breast. There has been no suspicious interval change. IMPRESSION: 1. No mammographic evidence of malignancy. 2. Recommend routine screening mammography in one year. BI-RADS Category 1: Negative Reviewed, dictated and finalized at location A.
== END 2023-02-05 10:30 | disposition home or self-care (01) ==
PROVIDERS: PCP Emergency Medicine; Visit Provider Internal Medicine Hematology & Oncology
DX: Z12.31 Encounter for screening mammogram for malignant neoplasm of breast (principal)
CPT/HCPCS: 77063; 77067

== ENCOUNTER 2023-03-04 09:30 | Outpatient (CLI) | payer MEDICARE, SELFPAY ==
--- NOTE | ~2023-03-04 | CT_ITS ---
EXAMINATION:CT diagnostic chest w con DATE: 03/04/2023 10:03 INDICATION: Malignant neoplasm metastatic to lymph node of axilla. TECHNIQUE: Computed tomography (CT) of the chest was performed with 75 mL Omnipaque 350 intravenous c ontrast. Automated exposure control and iterative reconstruction technique were employed. The dose-le ngth product (DLP) was 224.70 mGy-cm. COMPARISON: Chest CT 05/31/2022 FINDINGS: There is mild scarring in paraspinal right lower lobe. There is minimal atelectasis bilater ally. No pleural effusion. The heart size is normal. No pericardial effusion. There is ectasia of asc ending aorta measuring 4.3 cm . There are surgical changes of right breast and right anterior chest w all. There is cortical thinning of the kidneys. There is a 7 mm cyst in right kidney. There are bridg ing endplate osteophytes at multiple levels in the spine, consistent with diffuse idiopathic skeletal hyperostosis (DISH). IMPRESSION: 1. No evidence of metastatic disease. Reviewed, dictated and finalized at location A.
[2023-03-04 09:57] LABS: Estimated Glomerular Filt Rate 54
== END 2023-03-04 09:31 | disposition home or self-care (01) ==
PROVIDERS: PCP Emergency Medicine; Visit Provider Internal Medicine Hematology & Oncology
DX: C77.3 Secondary and unspecified malignant neoplasm of axilla and upper limb lymph nodes (principal)
CPT/HCPCS: 71260; Q9967

== ENCOUNTER 2023-11-21 10:51 | Outpatient (CLI) | payer MEDICARE, SELFPAY ==
[2023-11-21 17:39] LABS: LDL Cholesterol Direct 101 mg/dL
[2023-11-21 17:45] LABS: Vitamin D 25 Hydroxy 17.1 ng/mL
[2023-11-21 18:58] LABS: Cholesterol 243 mg/dL (0-200); Triglycerides 58 mg/dL (<150)
[2023-11-21 18:59] LABS: HDL Direct 123 mg/dL
== END 2023-11-21 10:52 | disposition home or self-care (01) ==
LOC: ANHLAB 10:54
PROVIDERS: PCP Emergency Medicine; Visit Provider Emergency Medicine
DX: Z78.0 Asymptomatic menopausal state (principal); M85.80 Other specified disorders of bone density and structure, unspecified site; I10 Essential (primary) hypertension
CPT/HCPCS: 36415; 80061; 82306

== ENCOUNTER 2024-01-13 10:39 | Outpatient (CLI) | payer MEDICARE, SELFPAY ==
--- NOTE | ~2024-01-13 | CT_ITS ---
Clinical Indication: Metastatic neoplasm CT Scan of the Chest with Contrast: Technique: Contiguous sections were acquired throughout the chest after intravenous administration of 75 cc of Omnipaque 350. Dose reduction technique was used on this scan by utilizing automated exposu re control and iterative reconstruction technique. The dose-length product (DLP) was 225.28 mGy-cm. Findings: There is no evidence of any significant mediastinal, hilar or axillary lymphadenopathy. There is no f illing defect in the pulmonary arterial tree to suggest pulmonary embolus. There is no evidence of ao rtic dissection or aneurysm. Status post right mastectomy and probable right axillary lymph node diss ection. There is no evidence of pleural or pericardial effusion. The lungs are clear. No pulmonary nodules or infiltrates are noted. Images through the upper abdomen reveal no abnormalities. Impression: No evidence for active malignancy or metastatic disease. Postoperative changes, as above.. Reviewed, dictated and finalized at [facility]. Impression: No evidence for active malignancy or metastatic disease. Postoperative changes, as above..
[2024-01-14 08:54] LABS: Estimated Glomerular Filt Rate 54
== END 2024-01-13 10:40 | disposition home or self-care (01) ==
PROVIDERS: PCP Emergency Medicine; Visit Provider Internal Medicine Hematology & Oncology
DX: C77.3 Secondary and unspecified malignant neoplasm of axilla and upper limb lymph nodes (principal)
CPT/HCPCS: 71260; Q9967

== ENCOUNTER 2024-05-05 10:02 | Outpatient (CLI) | payer MEDICARE, SELFPAY ==
--- NOTE | ~2024-05-05 | MM_ITS ---
EXAMINATION: MM screening paul LT w cheryl HISTORY: Screening TECHNIQUE: Craniocaudal and mediolateral oblique 3-D tomosynthesis images were obtained and synthetic 2-D images were generated. CAD analysis was submitted and interpreted. COMPARISON: Comparison to multiple prior studies sequentially, with oldest reviewed study dated 07/15. BREAST PARENCHYMAL COMPOSITION: Not dense: There are scattered areas of fibroglandular density. FINDINGS: There is no evidence of suspicious mass, calcification, or architectural distortion to sugg est malignancy in either breast. There has been no suspicious interval change. IMPRESSION: 1. No mammographic evidence of malignancy. 2. Recommend routine screening mammography in one year. BI-RADS Category 1: Negative Reviewed, dictated and finalized at location B.
== END 2024-05-05 10:03 | disposition home or self-care (01) ==
LOC: ANHIMG 10:05
PROVIDERS: PCP Emergency Medicine; Visit Provider Internal Medicine Hematology & Oncology
DX: Z12.31 Encounter for screening mammogram for malignant neoplasm of breast (principal)
CPT/HCPCS: 77063; 77067

== ENCOUNTER 2024-05-08 11:43 | Outpatient (CLI) | payer MEDICARE, SELFPAY ==
[2024-05-08 12:07] LABS: Basophils Percent Auto 0.6 % (0.2-1.2); Eosinophils Absolute Auto 0.3 K/mm3 (0-0.3); Eosinophils Percent Auto 5.1 % (0-4.4); Hematocrit 40.9 % (37.0-47.0); Hemoglobin 13.5 g/dL (12.0-15.0); Immature Granulocyte Absolute 0.01 K/mm3 (0.00-0.031); Immature Granulocyte Percent A 0.2 % (0-0.5); Lymphocytes Absolute Auto 0.81 K/mm3 (0.9-3.2); Mean Corpuscular Hemoglobin 33.6 pg (26-34); Mean Corpuscular Volume 101.7 fl (80-100); Mean Platelet Volume 9.4 fl (7.4-10.4); Monocytes Absolute Auto 0.6 K/mm3 (0.1-0.6); Monocytes Percent Auto 12.5 % (2.6-8.5); Neutrophils Absolute Auto 3.3 K/mm3 (1.3-6.7); Neutrophils Percent Auto 65.6 % (45.5-73.1); Platelet Count Result 166 k/mm3 (150-375); Red Blood Count 4.02 M/mm3 (4.2-5.4); Red Cell Distribution Width 12.6 % (11.5-14.5); White Blood Count 5.1 K/mm3 (4.5-10.0)
[2024-05-08 14:38] LABS: Alanine Aminotransferase 44 U/L (6-35); Albumin Level 4.6 g/dL (3.5-5.1); Alkaline Phosphatase 122 U/L (38-126); Anion Gap 10 mmol/L (4-12); Aspartate Amino Transferase 35 U/L (14-36); Bilirubin,Total 1.4 mg/dL (0.2-1.3); Blood Urea Nitrogen 21 mg/dL (7-17); Calcium 10.4 mg/dL (8.4-10.2); Carbon Dioxide 28 mmol/L (22-30); Chloride 97 mmol/L (98-107); Estimated Glomerular Filt Rate > 60; Glucose 93 mg/dL (65-110); Potassium 4.1 mmol/L (3.4-5.0); Sodium 135 mmol/L (137-145)
[2024-05-11 14:43] LABS: CA 15-3 9 U/mL (<32)
== END 2024-05-08 11:44 | disposition home or self-care (01) ==
LOC: ANHLAB 11:47
PROVIDERS: PCP Emergency Medicine; Visit Provider Internal Medicine Hematology & Oncology
DX: C50.811 Malignant neoplasm of overlapping sites of right female breast (principal); C77.3 Secondary and unspecified malignant neoplasm of axilla and upper limb lymph nodes
CPT/HCPCS: 36415; 80053; 85025; 86300

== ENCOUNTER 2024-09-09 12:55 | Outpatient (CLI) | payer MEDICARE, SELFPAY ==
[2024-09-09 13:20] LABS: Basophils Percent Auto 0.7 % (0.2-1.2); Eosinophils Absolute Auto 0.4 K/mm3 (0-0.3); Eosinophils Percent Auto 6.4 % (0-4.4); Hematocrit 38.4 % (37.0-47.0); Hemoglobin 12.9 g/dL (12.0-15.0); Immature Granulocyte Absolute 0.02 K/mm3 (0.00-0.031); Immature Granulocyte Percent A 0.4 % (0-0.5); Lymphocytes Absolute Auto 1.04 K/mm3 (0.9-3.2); Lymphocytes Percent Auto 18.5 % (18.3-44.2); Mean Corpuscular HGB Conc 33.6 g/dl (32-36); Mean Corpuscular Hemoglobin 34.1 pg (26-34); Mean Corpuscular Volume 101.6 fl (80-100); Mean Platelet Volume 9.9 fl (7.4-10.4); Monocytes Absolute Auto 0.7 K/mm3 (0.1-0.6); Monocytes Percent Auto 11.6 % (2.6-8.5); Neutrophils Absolute Auto 3.5 K/mm3 (1.3-6.7); Neutrophils Percent Auto 62.4 % (45.5-73.1); Platelet Count Result 155 k/mm3 (150-375); Red Blood Count 3.78 M/mm3 (4.2-5.4); Red Cell Distribution Width 12.2 % (11.5-14.5); White Blood Count 5.6 K/mm3 (4.5-10.0)
[2024-09-09 16:21] LABS: Alanine Aminotransferase 29 U/L (6-35); Albumin Level 4.6 g/dL (3.5-5.1); Alkaline Phosphatase 120 U/L (38-126); Anion Gap 6 mmol/L (4-12); Aspartate Amino Transferase 29 U/L (14-36); Bilirubin,Total 1.5 mg/dL (0.2-1.3); Blood Urea Nitrogen 15 mg/dL (7-17); Calcium 10.1 mg/dL (8.4-10.2); Carbon Dioxide 30 mmol/L (22-30); Chloride 101 mmol/L (98-107); Estimated Glomerular Filt Rate 60; Glucose 87 mg/dL (65-110); Potassium 4.2 mmol/L (3.4-5.0); Sodium 137 mmol/L (137-145)
[2024-09-12 02:42] LABS: CA 15-3 14 U/mL (<32)
== END 2024-09-09 12:56 | disposition home or self-care (01) ==
PROVIDERS: PCP Emergency Medicine; Visit Provider Internal Medicine Hematology & Oncology
DX: C50.911 Malignant neoplasm of unspecified site of right female breast (principal); C77.3 Secondary and unspecified malignant neoplasm of axilla and upper limb lymph nodes
CPT/HCPCS: 36415; 80053; 85025; 86300

== ENCOUNTER 2024-12-10 11:36 | Outpatient (CLI) | payer MEDICARE, SELFPAY ==
[2024-12-10 12:05] LABS: Basophils Percent Auto 0.7 % (0.2-1.2); Eosinophils Absolute Auto 0.2 K/mm3 (0-0.3); Eosinophils Percent Auto 3.9 % (0-4.4); Immature Granulocyte Absolute 0.02 K/mm3 (0.00-0.031); Immature Granulocyte Percent A 0.3 % (0-0.5); Lymphocytes Percent Auto 18.7 % (18.3-44.2); Mean Corpuscular HGB Conc 34.2 g/dl (32-36); Mean Corpuscular Hemoglobin 33.1 pg (26-34); Mean Corpuscular Volume 96.7 fl (80-100); Mean Platelet Volume 9.3 fl (7.4-10.4); Monocytes Absolute Auto 0.8 K/mm3 (0.1-0.6); Monocytes Percent Auto 13.2 % (2.6-8.5); Neutrophils Absolute Auto 3.7 K/mm3 (1.3-6.7); Neutrophils Percent Auto 63.2 % (45.5-73.1); Platelet Count Result 167 k/mm3 (150-375); Red Blood Count 3.93 M/mm3 (4.2-5.4); Red Cell Distribution Width 14.2 % (11.5-14.5); White Blood Count 5.9 K/mm3 (4.5-10.0)
[2024-12-10 12:13] LABS: Blood Urea Nitrogen 13 mg/dL (8-26); Carbon Dioxide 24 mmol/L (22-30); Chloride 101 mmol/L (98-109); Estimated Glomerular Filt Rate > 60; Glucose 103 mg/dL (70-105); Ionized Calcium (POC) 1.23 mmol/L (1.11-1.31); Potassium 3.8 mmol/L (3.5-4.9); Sodium 138 mmol/L (138-146)
[2024-12-10 13:35] LABS: Alanine Aminotransferase 26 U/L (6-35); Albumin Level 4.3 g/dL (3.5-5.1); Alkaline Phosphatase 111 U/L (38-126); Anion Gap 12 mmol/L (4-12); Aspartate Amino Transferase 23 U/L (14-36); Bilirubin,Total 1.7 mg/dL (0.2-1.3); Blood Urea Nitrogen 22 mg/dL (7-17); Calcium 10.3 mg/dL (8.4-10.2); Carbon Dioxide 24 mmol/L (22-30); Chloride 101 mmol/L (98-107); Estimated Glomerular Filt Rate > 60; Glucose 84 mg/dL (65-110); Sodium 137 mmol/L (137-145)
[2024-12-11 09:48] LABS: CA 15-3 7 U/mL (<32)
== END 2024-12-10 11:37 | disposition home or self-care (01) ==
LOC: ANHLAB 11:37
PROVIDERS: PCP Family Medicine; Visit Provider Internal Medicine Hematology & Oncology
DX: C50.811 Malignant neoplasm of overlapping sites of right female breast (principal); C77.3 Secondary and unspecified malignant neoplasm of axilla and upper limb lymph nodes
CPT/HCPCS: 36415; 80047; 80053; 85025; 86300

== ENCOUNTER 2024-12-31 11:00 | Outpatient (RCR) | payer MEDICARE, SELFPAY ==
--- NOTE | 2024-11-18 10:59 | OPREHPOC ---
Outpatient Therapy Plan of Care This is a Multidisciplinary Plan of Care that may contain components documented by all disciplines (PT, OT, and ST.) PT Problem 1 PT Problem #1 Knowledge Deficit PT Goal 1 Goal / Goal Update *indep with HEP Target Visit 10 PT Problem 2 PT Problem #2 Impaired Functional Mobility PT Goal 1 Goal / Goal Update * 2 minute walking test distance, with quad cane, 250'- to improve community ambulation Target Visit 10 PT Goal 2 Goal / Goal Update * 5 reps sit/stand time of 19 seconds with good control of transfer Target Visit 10 PT Problem 3 PT Problem #3 Impaired Strength PT Goal 1 Goal / Goal Update * increase L hip and knee strength, to improve stability to knee joint: pt able to perform mat & standing exercises x 20 reps with good stability Target Visit 10
--- NOTE | 2024-11-18 10:59 | PTOPEVAL1 ---
Assessment and note entered by Jagruti Ragland PT Evaluation Information Assessment Status Evaluation ICD-10 Condition Codes (PT) Pain in left knee M25.562 Other ICD-10 Condition Codes ( M17.12 L knee OA PT) Onset about 1 year ago Subjective Information gradual increase in L knee pain, over the past year; no injury or trauma to knee; started using cane about 6 months ago; had knee injection- helped pain; talked with her about TKR, but going to see if injection and therapy helps; have had 2 falls in the past 6 months--rolling garbage can out to street, getting up out of bed and lost her balance; feels like her balance is not as good as it used to be; do not do any exercises for her legs; Activity: live alone, she is indep with self care and light home tasks; for about 1 year; pt drives; has groceries delivered. daughter local and assist PRN; use quad cane in community and PRN in home; have full flight of stairs, with bilateral hand rails--is comfortable on them. GOAL: be able to stand longer to do things, better balance and walking; Reported Pain Level Pain Score Self Report L knee Additional Pain Score Comments pain range in the past week: 0-3/10; hurts most at lateral patella increase pain: reported walk/stand tolerance of 10 minutes decrease pain: sit, rest, muscle cream, does not take any meds for knee, not use heat/ice; instruct on PRN use of heat or ice 10-15 min Assessment PT Clinical Summary Romina has the diagnosis of L knee OA and pain, with decreased mobility. She has started using a quad cane and had 2 falls in the past 6 months. Self assessment with LE functional scale rating of 63% limitation in activity level. Decreased standing and walking due to knee pain. Also has pain in R knee. With the evaluation: she has decreased strength of L hip and knee, with decreased knee extension ROM; stands with hip and knee flexion and valgus of L LE; 5 reps sit/stand time of 22 seconds with decreased control of sitting down and 2 minute walking test distance with quad cane, of 180'. Skilled PT services are indicated for modalities to decrease pain, therapeutic exercises for increase LE strength, gait and balance skills, and education for HEP and pain control. Plan of Care Interventions Electrical Stimulation,Gait Training,Hot Pack/Cold Pack,Manual Therapy,Neuro Re-education,Patient/ Caregiver Education,Therapeutic Activities, Therapeutic Exercise,Ultrasound,Other Other Interventions taping PT Services Indicated Yes Treatment Frequency and 1-2x/wk for 10 visits Duration These treatments will address the objective and functional deficits as defined above. The patient will be advanced safely and appropriately in order for the patient to progress towards his/her prior level of function. Additional exercises will be introduced and as well as a comprehensive home exercise program upon discharge, if needed, ?to ensure carryover of functional gains achieved in the clinic. This treatment plan has been reviewed and agreement upon by the patient.
--- NOTE | 2024-11-25 11:32 | PCPTNOTE ---
Called and canceled due to weather(snow/ice). AKS
--- NOTE | 2024-12-09 11:23 | PCPTNOTE ---
Called and canceled, ill. AKS
--- NOTE | 2024-12-31 11:42 | PTOPDC ---
Assessment and note entered by Jagruti Ragland, PT Assessment Status Discharge ICD-10 Condition Codes (PT) Pain in left knee M25.562 Other ICD-10 Condition Codes ( M17.12 L knee OA PT) Onset about 1 year ago Subjective Information have been doing the leg exercises at home and using my little pedal machine 10-15 minutes at time; have not had any falls; is using the cane most of the time, sometimes in the house do not use it; is able to be up and moving around with home tasks 10-15 minutes; is going into her basement, doing laundry and everything she needs to do at home; L knee hurts, but she does not want to walk with a walker; wants to be finished with therapy and do the exercises on her own at home. Reported Pain Level Pain Score Self Report Additional Pain Score Comments at rest, no pain in L knee, with walking and exercises have pain L knee Assessment PT Clinical Summary Romina has received 8 PT sessions. She called/ canceled 2 appointments. Continues to have pain in L knee with standing/walking. Compared to the initial evaluation: 5 reps sit/ stand time from 22 sec with plopping into chair and now 23 seconds with good control of sitting; 2 minute walking test with large base quad cane, distance is the same at 180'; strength of L hip abduction 3-/5 and flexion 4/5; LE functional scale rating from 63% to 54% limitation in activity level. Education for HEP and gait pattern. She is not interested in using the wheeled walker for more support to knee. The goals were partially met. Discharge from PT. She is to continue with her exercises at home. Plan of Care PT Services Indicated No
== END 2024-12-31 14:21 | disposition home or self-care (01) ==
LOC: ANHPT 11:00
PROVIDERS: PCP Family Medicine; Visit Provider Orthopaedic Surgery
DX: M17.12 Unilateral primary osteoarthritis, left knee (principal)
CPT/HCPCS: 97035; 97110; 97161; 97530

== ENCOUNTER 2025-01-18 13:27 | Outpatient (CLI) | payer MEDICARE, SELFPAY ==
--- OUTSIDE RECORDS SUMMARY | 2025-01-18 15:24 | XMS_ITS | Clinical Summary ---
Author Organization [facility] Address [address] [facility] [place] [address] Care Team Providers Care Fermentation Operator Name Role Phone Asha Blevins MD Primary Care Provider +1- [phone] Allergies No known active allergies Medications TURMERIC ORAL Take by mouth. 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 60 Capsule 3 09/18/2019 Active ondansetron (ZOFRAN) 4 mg Tablet Take 4 mg by mouth every 8 hours as needed. NEEDED FOR NAUSEA AND VOMITING. 10/03/2020 Active CYANOCOBALAMIN, VITAMIN B-12, ORAL Take by mouth. Active FERROUS SULFATE ORAL Take by mouth. Active hydroCHLOROthiaz elías (HYDRODIURIL) 12.5 mg tablet Take 12.5 mg by mouth daily. 11/15/2022 Active anastrozole (ARIMIDEX) 1 mg tablet Take 1 tablet by mouth once daily 90 Tablet 1 01/17/2024 Active anastrozole (ARIMIDEX) 1 mg tabletIndication s:Malignant neoplasm metastatic to lymph node of axilla (CMS/HCC) Take 1 Tablet (1 mg) by mouth daily. 90 Tablet 3 02/28/2024 Active palbociclib (Ibrance) 75 mg tabletIndication s:Malignant neoplasm metastatic to lymph node of axilla (CMS/HCC) Take 1 Tablet (75 mg) by mouth daily for 3 weeks on, then 1 week off. 21 Tablet 11 09/23/2024 Active anastrozole (ARIMIDEX) 1 mg tablet TAKE 1 TABLET EVERY DAY 90 Tablet 3 01/13/2025 Active Active Problems Patient Care Coordination No te Formatting of this note migh t be different from the original. Primary Care: Dannie Hannon MD Referring Provider: No referring provider defined for this encounter. Other: Dr. Carly Syed MD Problem Noted Date Diagnosed Date History of right breast cancer 02/13/2024 Aromatase inhibitor use 02/13/2024 S/P right mastectomy 06/12/2020 Lymphedema of right upper extremity 08/07/2019 Malignant neoplasm metastatic to lymph node of a xilla 08/07/2019 Carcinoma of overlapping sit es of right breast in female, estrogen receptor positive 08/06/2019 Cancer Staging:Clinical:Stage IIIB(cT4c, cN3a, cM0, G3, ER+, CA+, HER2-) - Signed by Carly Syed MD on 08/29/2019 Encounters Date Type Department Care Team Description 01/13/2025 Refill [facility] On[facility] Hematology [facility] [address] [place] [address] Tim Del Real MD 12/18/2024 10:45 AM FURNACE MECHANIC HELPER Office Visit [facility] - [place] [address] [place] [address] Tim Del Real MD 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) 12/17/2024 Orders Only [facility]ematology - [place] [address] [place] [address] Tim Del Real MD 12/17/2024 Abstract [facility] - [place] [address] [place] [address] Tim Del Real MD 12/16/2024 Orders Only [facility] - [place] [address] [place] [address] Tim Del Real MD 12/16/2024 Abstract [facility] [address] [place] [address] Tim Del Real MD 11/10/2024 External Device Data STL ABSTRACTION Provider, Abstract 11/04/2024 External Device Data STL ABSTRACTION Provider, Abstract 10/23/2024 Abstract [facility] [place] [address] [place] [address] Tim Del Real MD from Last 3 Months Family History Relation Name Status Comments Father Mother Sister 1 Alive Sister 2 Alive Sister 3 Alive Sister 4 Alive Social History Tobacco Use Types Packs/Day Years Used Date Smoking Tobacco: Never Smokeless Tobacco: Never Tobacco Cessation:Counseling Given: Not Answered Alcohol Use Standard Drinks/Week Comments Yes 0 (1 standard drink = 0.6 oz pur e alcohol) moderate Feeling Safe Answer Date Recorded Within the last year, have y ou been afraid of your partner or ex-partner? No 02/13/2024 Within the last year, have y ou been humiliated or emotionally abused in other ways by your partner or ex-partner? No Within the last year, have y ou been kicked, hit, slapped, or otherwise physically hurt by your partner or ex-partner? No 02/13/2024 Within the last year, have y ou been raped or forced to have any kind of sexual activity by your partner or ex-partner? No 02/13/2024 Comments No Sex and Gender Information Value Date Recorded Sex Assigned at Not on file Legal Sex Female 2:20 PM CDT Gender Identity Not on file Sexual Orientation Not on file Last Filed Vital Signs Vital Sign Reading Time Taken Comments Blood Pressure 162/93 12/18/2024 10:49 AM FURNACE MECHANIC HELPER Pulse 87 12/18/2024 10:46 AM FURNACE MECHANIC HELPER Temperature 36.3 C (97.4 F) 12/18/2024 10:46 AM FURNACE MECHANIC HELPER Respiratory Rate 15 12/18/2024 10:46 AM FURNACE MECHANIC HELPER Oxygen Saturation 98% 12/18/2024 10:46 AM FURNACE MECHANIC HELPER Inhaled Oxygen Concentration - - Weight 77.8 kg (171 lb 9.6 oz) 12/18/2024 10:46 AM FURNACE MECHANIC HELPER Height 167.6 cm (5' 6 ) 02/13/2024 11:05 AM CDT Body Mass Index 27.7 02/13/2024 11:05 AM CDT Plan of Treatment Upcoming Encounters Date Type Department Care Team (Late st Contact Info) Description 02/24/2025 11:15 AM CDT Office Visit [facility]ology - [place] [address] [place] [address] Tim Del Real MD [address] [facility] [address] [place] [address] Health Maintenance Due Date Last Done Comments DTAP/TDAP/TD VACCINES (1 - Tdap) 1964 PNEUMOCOCCAL VACCINE 50+ YEARS (1 of 2 - PCV) 05/31/19 [birth year] Traditional Medicare (O) Annual Wellness Visit 05/31 ZOSTER VACCINE (1 of 2) 1964 RSV VACCINE (60+ or ) (1 - 1-dose 75+ series) 2020 INFLUENZA VACCINE (#1) 2024 OSTEOPOROSIS SCREENING Completed 08/23/2022 Medical Devices Implanted Type Area Frozen Food Department Manager Device Identifier Shelf Expiration Date Model / Serial / Lot Children'S Book Author Clip Surgiclip Ii Beto 11.5in [id number] - [id number] Implanted:Qty : 2 on 12/18/2019 by Carly Syed MD at [facility] Clip Right: Breast [employer] - COVIDIEN [id number] 07/13/2024 [id number] / / [id number] Procedures Procedure Name Priority Date/Time Associated Diagnosis Comments CANCER ANTIGEN 15-3 Routine 12/10/2024 3:54 PM FURNACE MECHANIC HELPER BASIC METABOLIC PANEL Routine 12/10/2024 12:04 PM FURNACE MECHANIC HELPER from Last 3 Months Results * CANCER ANTIGEN 15-3 (12/10/2024 3:54 PM FURNACE MECHANIC HELPER) Blood us Tim Del Real MD CHEMISTRY ORDERABLES Final Resu lt * BASIC METABOLIC PANEL (12/10/2024 12:04 PM FURNACE MECHANIC HELPER) Blood Tim Del Real MD CHEMISTRY ORDERABLES Final Resu lt from Last 3 Months Insurance MEDICARE PART A AND B [facility] SUPP MEDICARE PART A AND B [facility] SUPP RX RoomActually Medicare Part D Advance Directives For more information, please contact: [phone] * Full Code (Latest Code Status on File) Date Activated Date Inactivated Comments 12/18/2019 5:49 PM 12/19/2019 6:38 PM * Full Code Date Activated Date Inactivated Comments 12/18/2019 8:24 AM 12/18/2019 5:49 PM Care Teams Fermentation Operator Relationship Specialty Start Date End Date Asha Blevins MD [address] [facility] [address] [place] [address] PCP - General Family Practice 12/18/24
--- OUTSIDE RECORDS SUMMARY | 2025-01-18 15:24 | XMS_ITS | Encounter Summary ---
Author Organization [facility] Address [address] [place] [address] Care Team Providers Care Airport Operations Specialist Name Role Phone Asha Blevins MD Primary Care Provider [phone]- [phone] Encounter Details Date Type Department Care Team (Late st Contact Info) Description 12/01/2019 Chart Note [facility] Radiation Therapy [address] [place] [address] [place] [address] [place] [address] Social History Tobacco Use Types Packs/Day Years Used Date Smoking Tobacco: Never Smokeless Tobacco: Never Alcohol Use Standard Drinks/Week Comments Yes 0 (1 standard drink = 0.6 oz pur e alcohol) moderate Comments No Sex and Gender Information Value Date Recorded Sex Assigned at Not on file Legal Sex Female 2:20 PM CDT Gender Identity Not on file Sexual Orientation Not on file documented as of this encounter Plan of Treatment Upcoming Encounters Date Type Department Care Team (Late st Contact Info) Description 02/24/2025 11:15 AM CDT Office Visit [facility] Oncology and Hematology - [place] [address] [facility] [address] [place] [address] Tim Del Real MD [address] [facility] [address] [place] [address] documented as of this encounter Visit Diagnoses Not on filedocumented in this encounter Care Teams Airport Operations Specialist Relationship Specialty Start Date End Date Asha Blevins MD [address] [facility] [address] [place] [address] PCP - General Family Practice 12/18/24 documented as of this encounter
== END 2025-01-18 13:28 | disposition home or self-care (01) ==
LOC: ANHCARD 13:28
PROVIDERS: PCP Family Medicine; Visit Provider Family Medicine
DX: R00.2 Palpitations (principal)
CPT/HCPCS: 93242

== ENCOUNTER 2025-01-26 11:09 | Outpatient (CLI) | payer MEDICARE, SELFPAY ==
--- OUTSIDE RECORDS SUMMARY | 2025-01-26 12:27 | XMS_ITS | Clinical Summary ---
Author Organization [facility] Address [address] [facility] [place] [address] Care Team Providers Care Teacher Education Instructor Name Role Phone Asha Blevins MD Primary Care Provider +1- [phone] Allergies No known active allergies Medications TURMERIC [...] Cancer Staging:Clinical:Stage IIIB(cT4c, cN3a, cM0, G3, ER+, [place]+, HER2-) - Signed by Carly Syed MD on 08/29/2019 Encounters Date Type Department Care Team Description 01/13/2025 Refill [facility] Oncology and Hematology [facility] [address] [place] [address] Tim Del Real MD 12/18/2024 10:45 AM PSYCHIATRY ADULT PHYSICIAN Office Visit [facility] Oncology and Hematology - [place] [address] [place] [address] Tim Del Real MD 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) 12/17/2024 Orders Only [facility] Oncology and Hematology - [place] [address] [place] [address] Tim Del Real MD 12/17/2024 Abstract [facility] Oncology and Hematology - [place] [address] [place] [address] Tim Del Real MD 12/16/2024 Orders Only [facility] Oncology and Hematology - [place] [address] [place] [address] Tim Del Real MD 12/16/2024 Abstract [facility] Oncology and Hematology - [place] [address] [place] [address] Tim Del Real MD 11/10/2024 External Device Data STL ABSTRACTION Provider, Abstract 11/04/2024 External Device Data STL ABSTRACTION Provider, Abstract from Last 3 Months Family History Relation [...] Comments Blood Pressure 162/93 12/18/2024 10:49 AM PSYCHIATRY ADULT PHYSICIAN Pulse 87 12/18/2024 10:46 AM PSYCHIATRY ADULT PHYSICIAN Temperature 36.3 C (97.4 F) 12/18/2024 10:46 AM PSYCHIATRY ADULT PHYSICIAN Respiratory Rate 15 12/18/2024 10:46 AM PSYCHIATRY ADULT PHYSICIAN Oxygen Saturation 98% 12/18/2024 10:46 AM PSYCHIATRY ADULT PHYSICIAN Inhaled Oxygen Concentration - - Weight 77.8 kg (171 lb 9.6 oz) 12/18/2024 10:46 AM PSYCHIATRY ADULT PHYSICIAN Height 167.6 cm (5' 6 ) 02/13/2024 11:05 AM CDT Body Mass Index 27.7 02/13/2024 11:05 AM CDT Plan of Treatment Upcoming Encounters Date Type Department Care Team (Late st Contact Info) Description 02/24/2025 11:15 AM CDT Office Visit [facility] Oncology and Hematology - [place] [address] [facility] [address] [place] [address] Tim Del Real MD [address] [facility] [address] [place] [address] Health Maintenance Due Date Last Done Comments DTAP/TDAP/TD VACCINES (1 - Tdap) 1964 PNEUMOCOCCAL VACCINE 50+ YEARS (1 of 2 - PCV) 05/31/19 64 Traditional Medicare (ACO) Annual Wellness Visit 05/31 ZOSTER VACCINE (1 of 2) 1964 RSV VACCINE (60+ or ) (1 - 1-dose 75+ series) 2020 INFLUENZA VACCINE (#1) 2024 OSTEOPOROSIS SCREENING Completed 08/23/2022 Medical Devices Implanted Type Area Monitoring Tech Device Identifier Shelf Expiration Date Model / Serial / Lot Oil Rag Washer Clip Surgiclip Ii Beto 11.5in [id number] - [id number] Implanted:Qty : 2 on 12/18/2019 by Carly Syed MD at [facility] Clip Right: Breast [employer] - COVIDIEN [id number] 07/13/2024 [id number] / / [id number] Procedures Procedure Name Priority Date/Time Associated Diagnosis Comments CANCER ANTIGEN 15-3 Routine 12/10/2024 3:54 PM PSYCHIATRY ADULT PHYSICIAN BASIC METABOLIC PANEL Routine 12/10/2024 12:04 PM PSYCHIATRY ADULT PHYSICIAN from Last 3 Months Results * CANCER ANTIGEN 15-3 (12/10/2024 3:54 PM PSYCHIATRY ADULT PHYSICIAN) Blood us Tim Del Real MD CHEMISTRY ORDERABLES Final Resu lt * BASIC METABOLIC PANEL (12/10/2024 12:04 PM PSYCHIATRY ADULT PHYSICIAN) Blood Tim Del Real MD CHEMISTRY ORDERABLES Final Resu lt from Last 3 Months Insurance MEDICARE PART A AND B [employer] SUPP [employer] SUPP RX [employer] Medicare Part D Advance Directives For more information, please contact: [phone] * Full Code (Latest Code Status on File) Date Activated Date Inactivated Comments 12/18/2019 5:49 PM 12/19/2019 6:38 PM * Full Code Date Activated Date Inactivated Comments 12/18/2019 8:24 AM 12/18/2019 5:49 PM Care Teams Teacher Education Instructor Relationship Specialty Start Date End Date Asha Blevins MD [address] [facility] [address] [place] [address] PCP - General Family Practice 12/18/24
--- OUTSIDE RECORDS SUMMARY | 2025-01-26 12:27 | XMS_ITS | Encounter Summary ---
Author Organization [facility] Address [address] [place] [address] Care Team Providers Care Retread Technician Name Role Phone Asha Blevins MD Primary Care Provider +1- [phone] Encounter Details Date Type Department Care Team (Late st Contact Info) Description 12/01/2019 Chart Note [facility] Radiation Therapy [address] [place] [address] [place] [address] [place] [address] Social History Tobacco Use Types [...] Description 02/24/2025 11:15 AM CDT Office Visit [facility] Oncology and Hematology - [place] [address] [facility] [address] [place] [address] Tim Del Real MD [address] [facility] [address] [place] [address] documented as of this encounter Visit Diagnoses Not on filedocumented in this encounter Care Teams Retread Technician Relationship Specialty Start Date End Date Asha Blevins MD [address] [facility] [address] [place] [address] PCP - General Family Practice 12/18/24 documented as of this encounter
[2025-01-26 13:45] LABS: Anion Gap 12 mmol/L (4-12); Blood Urea Nitrogen 21 mg/dL (7-17); Calcium 10.5 mg/dL (8.4-10.2); Carbon Dioxide 24 mmol/L (22-30); Chloride 99 mmol/L (98-107); Cholesterol 262 mg/dL (0-200); Estimated Glomerular Filt Rate 43; Glucose 104 mg/dL (65-110); Potassium 4.4 mmol/L (3.4-5.0); Sodium 135 mmol/L (137-145); Triglycerides 61 mg/dL (<150)
[2025-01-26 13:46] LABS: HDL Direct 134 mg/dL
[2025-01-26 13:47] LABS: LDL Cholesterol Direct 90 mg/dL
[2025-01-26 13:55] LABS: Vitamin D 25 Hydroxy 54.4 ng/mL
[2025-01-26 14:27] LABS: Hepatitis C Virus Antibody Negative (Negative)
== END 2025-01-26 11:10 | disposition home or self-care (01) ==
PROVIDERS: PCP Family Medicine; Visit Provider Family Medicine
DX: I10 Essential (primary) hypertension (principal); M85.80 Other specified disorders of bone density and structure, unspecified site; Z78.0 Asymptomatic menopausal state
CPT/HCPCS: 36415; 80048; 80061; 82306; 86803

== ENCOUNTER 2025-02-02 11:08 | Outpatient (CLI) | payer MEDICARE, SELFPAY ==
[2025-02-02 11:28] LABS: Basophils Percent Auto 1.2 % (0.2-1.2); Eosinophils Percent Auto 1.2 % (0-4.4); Hematocrit 34.6 % (37.0-47.0); Hemoglobin 11.9 g/dL (12.0-15.0); Immature Granulocyte Absolute 0.01 K/mm3 (0.00-0.031); Immature Granulocyte Percent A 0.3 % (0-0.5); Lymphocytes Absolute Auto 0.99 K/mm3 (0.9-3.2); Lymphocytes Percent Auto 30.2 % (18.3-44.2); Mean Corpuscular HGB Conc 34.4 g/dl (32-36); Mean Corpuscular Hemoglobin 34.6 pg (26-34); Mean Corpuscular Volume 100.6 fl (80-100); Mean Platelet Volume 9.7 fl (7.4-10.4); Monocytes Absolute Auto 0.4 K/mm3 (0.1-0.6); Monocytes Percent Auto 11.3 % (2.6-8.5); Neutrophils Absolute Auto 1.8 K/mm3 (1.3-6.7); Neutrophils Percent Auto 55.8 % (45.5-73.1); Platelet Count Result 154 k/mm3 (150-375); Red Blood Count 3.44 M/mm3 (4.2-5.4); Red Cell Distribution Width 16.5 % (11.5-14.5); White Blood Count 3.3 K/mm3 (4.5-10.0)
--- OUTSIDE RECORDS SUMMARY | 2025-02-02 12:59 | XMS_ITS | Clinical Summary ---
Author Organization [facility] Address [address] [facility] [place] [address] Care Team Providers Care Night Worker Name Role Phone Asha Blevins MD Primary Care Provider +1- [phone] Allergies No known active allergies Medications TURMERIC [...] SULFATE ORAL Take by mouth. 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) 12/17/2024 Orders Only [facility] Oncology and Hematology - [place] [address] [place] [address] Tim Del Real MD 12/17/2024 Abstract [facility] Oncology and Hematology - [place] [address] [place] [address] Tim Del Real MD 12/16/2024 Orders Only [facility] Oncology and Hematology - [place] [address] [place] [address] Tim Del Real MD 12/16/2024 Abstract [facility] Oncology and Hematology - [place] [address] [place] [address] Tim Del Real MD 11/10/2024 External Device [...] Comments Blood Pressure 162/93 12/18/2024 10:49 AM CRICKET COACH Pulse 87 12/18/2024 10:46 AM CRICKET COACH Temperature 36.3 C (97.4 F) 12/18/2024 10:46 AM CRICKET COACH Respiratory Rate 15 12/18/2024 10:46 AM CRICKET COACH Oxygen Saturation 98% 12/18/2024 10:46 AM CRICKET COACH Inhaled Oxygen Concentration - - Weight 77.8 kg (171 lb 9.6 oz) 12/18/2024 10:46 AM CRICKET COACH Height 167.6 cm (5' 6 ) 02/13/2024 11:05 AM CDT Body Mass Index 27.7 02/13/2024 11:05 AM CDT Plan of Treatment Upcoming Encounters Date Type Department Care Team (Late st Contact Info) Description 02/24/2025 11:15 AM CDT Office Visit [facility] Oncology and Hematology - [place] [address] [facility] [address] [place] [address] Tim Del Real MD [address] [facility] [address] [place] [address] Health Maintenance Due Date Last Done Comments DTAP/TDAP/TD VACCINES (1 - Tdap) 1964 PNEUMOCOCCAL VACCINE 50+ YEARS (1 of 2 - PCV) 05/31/19 64 Traditional Medicare (ACO) Annual Wellness Visit 05/31 ZOSTER VACCINE (1 of 2) 1964 RSV VACCINE (60+ or ) (1 - 1-dose 75+ series) 2020 INFLUENZA VACCINE (#1) 2024 OSTEOPOROSIS SCREENING 08/23/2027 08/23/2022 Medical Devices Implanted Type Area System Sales Consultant Device Identifier Shelf Expiration Date Model / Serial / Lot Cotton Header Clip Surgiclip Ii Beto 11.5in [id number] - [id number] Implanted:Qty : 2 on 12/18/2019 by Carly Syed MD at [facility] Clip Right: Breast [employer] - COVIDIEN [id number] 07/13/2024 [id number] / / [id number] Procedures Procedure Name Priority Date/Time Associated Diagnosis Comments CANCER ANTIGEN 15-3 Routine 12/10/2024 3:54 PM CRICKET COACH BASIC METABOLIC PANEL Routine 12/10/2024 12:04 PM CRICKET COACH from Last 3 Months Results * CANCER ANTIGEN 15-3 (12/10/2024 3:54 PM CRICKET COACH) Blood us Tim Del Real MD CHEMISTRY ORDERABLES Final Resu lt * BASIC METABOLIC PANEL (12/10/2024 12:04 PM CRICKET COACH) Blood Tim Del Real MD CHEMISTRY ORDERABLES Final Resu lt from Last 3 Months Insurance MEDICARE PART A AND B [employer] SUPP MEDICARE PART A AND B [facility] SUPP RX [employer] Medicare Part D Advance Directives For more information, please contact: [phone] * Full Code (Latest Code Status on File) Date Activated Date Inactivated Comments 12/18/2019 5:49 PM 12/19/2019 6:38 PM * Full Code Date Activated Date Inactivated Comments 12/18/2019 8:24 AM 12/18/2019 5:49 PM Care Teams Night Worker Relationship Specialty Start Date End Date Asha Blevins MD [facility] [address] [place] [address] PCP - General Family Practice 12/18/24
--- OUTSIDE RECORDS SUMMARY | 2025-02-02 12:59 | XMS_ITS | Encounter Summary ---
Author Organization [facility] Address [address] [place] [address] Care Team Providers Care Boring Mill Set Up Operator Vertical Name Role Phone Asha Blevins MD Primary Care Provider [phone]- [phone] Encounter Details Date Type Department Care Team (Late st Contact Info) Description 12/01/2019 Chart Note [facility] Radiation Therapy [address] [place] [address] [place] [address] [place] [address] Social History Tobacco Use Types [...] Description 02/24/2025 11:15 AM CDT Office Visit [facility] Oncology and Hematology - [place] [address] [facility] [address] [place] [address] Tim Del Real MD [address] [facility] [address] [place] [address] documented as of this encounter Visit Diagnoses Not on filedocumented in this encounter Care Teams Boring Mill Set Up Operator Vertical Relationship Specialty Start Date End Date Asha Blevins MD [address] [facility] [address] [place] [address] PCP - General Family Practice 12/18/24 documented as of this encounter
[2025-02-02 13:51] LABS: Alanine Aminotransferase 20 U/L (6-35); Albumin Level 4.4 g/dL (3.5-5.1); Alkaline Phosphatase 90 U/L (38-126); Anion Gap 9 mmol/L (4-12); Aspartate Amino Transferase 21 U/L (14-36); Bilirubin,Total 1.5 mg/dL (0.2-1.3); Blood Urea Nitrogen 20 mg/dL (7-17); Calcium 9.7 mg/dL (8.4-10.2); Carbon Dioxide 24 mmol/L (22-30); Chloride 102 mmol/L (98-107); Estimated Glomerular Filt Rate 43; Glucose 91 mg/dL (65-110); Potassium 4.4 mmol/L (3.4-5.0); Sodium 135 mmol/L (137-145)
[2025-02-04 06:44] LABS: CA 15-3 10 U/mL (<32)
== END 2025-02-02 11:09 | disposition home or self-care (01) ==
LOC: ANHLAB 11:09
PROVIDERS: Internal Medicine Hematology & Oncology; PCP Family Medicine; Visit Provider Family Medicine
DX: C77.3 Secondary and unspecified malignant neoplasm of axilla and upper limb lymph nodes (principal); C50.811 Malignant neoplasm of overlapping sites of right female breast; Z17.0 Estrogen receptor positive status [ER+]
CPT/HCPCS: 36415; 80053; 85025; 86300

== ENCOUNTER 2025-02-11 09:34 | Outpatient (CLI) | payer MEDICARE, SELFPAY ==
--- NOTE | ~2025-02-11 | NM_ITS ---
EXAMINATION: NM nilda stress w perfusion DATE: 02/11/2025 12:06 INDICATION: Unspecified atrial fibrillation TECHNIQUE: Rest images were obtained following intravenous administration of 9.2 mCi Tc99m tetrofosmi n (Myoview). The patient was infused intravenously with Lexiscan (Regadenoson). Then, 28.5 mCi Tc99m tetrofosmin (Myoview) was administered intravenously, and stress images were obtained. Data was recon structed into short axis and horizontal and vertical long axis SPECT images. Gated SPECT images were also obtained. COMPARISON: None. FINDINGS: There is no definite reversible or fixed perfusion abnormality to suggest ischemia or infar ction. There is normal left ventricular chamber size, wall motion and ejection fraction. Left ventr icular ejection fraction measures 69%. IMPRESSION: 1. Normal myocardial perfusion at rest and during stress. 2. Left ventricular ejection fraction measuring 69%. Reviewed, dictated and finalized at location B.
--- NOTE | 2025-02-11 09:46 | EST_ITS ---
Patient Info Name: Romina Del Cid Age: 79 years : 1945 Gender: Female Ht: 66 in Wt: 172 lbs BSA: 1.92 m2 Exam Date: 02/11/2025 11:14 AM Exam Location: Echo Lab Patient Status: Outpatient Admit Date: 02/11/2025 Staff Ordering Physician: Asha Blevins MD Attending Provider: Asha Blevins MD Exercise Technologist: Janene Fu RDCS Exercise Physician: Darnell Torres DO Exam Type: CA stress nilda w NM Study Info Indications I48.91 - ATRIAL FIBRILLATION A regadenoson stress test was performed. Summary 1. 1. Negative lexiscan stress test for ischemic ST changes by ECG criteria. 2. 2. Baseline hypertension. 3. 3. Nuclear scan to follow and will be reported separately. Please correlate with it. 4. 4. Patient informed of the above results. Protocol: Lexiscan Stress ECG Details Stage: REST Duration (min): 2 min : 2 sec HR (bpm): 66 SBP (mmHg): 214 DBP (mmHg): 90 Stage: REST Duration (min): 3 min : 14 sec HR (bpm): 66 SBP (mmHg): 169 DBP (mmHg): 93 Stage: REST Duration (min): 3 min : 34 sec HR (bpm): 64 SBP (mmHg): 169 DBP (mmHg): 93 Stage: REST Duration (min): 6 min : 58 sec HR (bpm): 60 SBP (mmHg): 169 DBP (mmHg): 93 Stage: STAGE 1 Duration (min): 1 min : 0 sec HR (bpm): 64 SBP (mmHg): 169 DBP (mmHg): 93 Stage: RECOVERY Duration (min): 1 min : 0 sec HR (bpm): 69 SBP (mmHg): 169 DBP (mmHg): 93 Stage: RECOVERY Duration (min): 2 min : 0 sec HR (bpm): 63 SBP (mmHg): 168 DBP (mmHg): 84 Stage: RECOVERY Duration (min): 3 min : 0 sec HR (bpm): 66 SBP (mmHg): 155 DBP (mmHg): 88 Stage: RECOVERY Duration (min): 3 min : 3 sec HR (bpm): 63 SBP (mmHg): 155 DBP (mmHg): 88 Rest HR: 60 bpm Peak HR: 74 bpm Rest Sys BP: 169 mmHg Peak Sys BP: 168 mmHg Max Pred HR: 141 bpm % Max Pred HR: 52 % Target HR: 120 bpm Max RPP: 12,432 bpm*mmHg Termination Reason: Completed protocol Cardiac Symptoms: None Total Time: 1 min : 0 sec Rest Bender BP: 93 mmHg Peak Bender BP: 84 mmHg Total Dose: 0.4 mg Resting ECG Atrial fibrillation. Stress ECG No ST changes. Arrhythmias No other arrhythmias. Report Signatures
--- OUTSIDE RECORDS SUMMARY | 2025-02-11 10:06 | XMS_ITS | Clinical Summary ---
[facility] Address [address] [facility] [place] [address] Care Team Providers Care Car Shifter Name Role Phone Asha Blevins MD Primary Care Provider [phone]- [phone] Allergies No known active allergies Medications TURMERIC [...] Cancer Staging:Clinical:Stage IIIB(cT4c, cN3a, cM0, G3, ER+, [place]+, HER2-) - Signed by Carly Syed MD on 08/29/2019 Encounters Date Type Department Care Team Description 02/04/2025 Orders Only [facility] Oncology and Hematology - [place] [address] [place] [address] Tim Del Real MD 02/02/2025 Orders Only [facility] Oncology and Hematology - [place] [address] [place] [address] Tim Del Real MD 01/13/2025 Refill [facility] Oncology and Hematology - [place] [address] [place] [address] Tim Del Real MD 12/18/2024 10:45 AM VENETIAN BLIND WASHER Office Visit [facility] Oncology and Hematology - [place] [address] [place] [address] Tim Del Real MD 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) 12/17/2024 Orders Only [facility] Oncology and Hematology - [place] [address] [place] [phone] Tim Del Real MD 12/17/2024 Abstract [facility] Oncology and Hematology - [place] [address] [place] [id number] Tim Del Real MD 12/16/2024 Orders Only [facility] Oncology and Hematology - [place] [address] [place] [id number] Tim Del Real MD 12/16/2024 Abstract [facility] Oncology and Hematology - [place] [address] [place] [phone] Tim Del Real MD from Last 3 [...] Comments Blood Pressure 162/93 12/18/2024 10:49 AM VENETIAN BLIND WASHER Pulse 87 12/18/2024 10:46 AM VENETIAN BLIND WASHER Temperature 36.3 C (97.4 F) 12/18/2024 10:46 AM VENETIAN BLIND WASHER Respiratory Rate 15 12/18/2024 10:46 AM VENETIAN BLIND WASHER Oxygen Saturation 98% 12/18/2024 10:46 AM VENETIAN BLIND WASHER Inhaled Oxygen Concentration - - Weight 77.8 kg (171 lb 9.6 oz) 12/18/2024 10:46 AM VENETIAN BLIND WASHER Height 167.6 cm (5' 6 ) 02/13/2024 11:05 AM CDT Body Mass Index 27.7 02/13/2024 11:05 AM CDT Plan of Treatment Upcoming Encounters Date Type Department Care Team (Late st Contact Info) Description 02/24/2025 11:15 AM CDT Office Visit [facility] Oncology and Hematology - [place] [address] [facility] [address] [place] [address] Tim Del Real MD [address] [facility] [address] [place] [address] Health Maintenance Due Date Last Done Comments DTAP/TDAP/TD VACCINES (1 - Tdap) 1964 PNEUMOCOCCAL VACCINE 50+ YEARS (1 of 2 - PCV) 05/31/19 64 ZOSTER VACCINE (1 of 2) 1964 RSV VACCINE (60+ or ) (1 - 1-dose 75+ series) 2020 INFLUENZA VACCINE (#1) 2024 OSTEOPOROSIS SCREENING 08/23/2027 08/23/2022 Medical Devices Implanted Type Area Assurance Auditor Device Identifier Shelf Expiration Date Model / Serial / Lot Solution Maker Clip Surgiclip Ii Beto 11.5in [id number] - [id number] Implanted:Qty : 2 on 12/18/2019 by Carly Syed MD at [facility] Clip Right: Breast [employer] - COVIDIEN [id number] 07/13/2024 [id number] / / [id number] Procedures Procedure Name Priority Date/Time Associated Diagnosis Comments COMPREHENSIVE METABOLIC PANEL Routine 02/02/2025 3:23 PM CDT CANCER ANTIGEN 15-3 Routine 02/02/2025 1 :18 PM CDT CANCER ANTIGEN 15-3 Routine 12/10/2024 3 :54 PM VENETIAN BLIND WASHER BASIC METABOLIC PANEL Routine 12/10/2024 12:04 PM VENETIAN BLIND WASHER from Last 3 Months Results * COMPREHENSIVE METABOLIC PANEL (02/02/2025 3:23 PM CDT) Blood Tim Del Real MD CHEMISTRY ORDERABLES Final Resu lt * CANCER ANTIGEN 15-3 (02/02/2025 1:18 PM CDT) Only the most recent of2 resultswithin the time period is included. Blood Tim Del Real MD CHEMISTRY ORDERABLES Final Resu lt * BASIC METABOLIC PANEL (12/10/2024 12:04 PM VENETIAN BLIND WASHER) Blood Tim Del Real MD CHEMISTRY ORDERABLES Final Resu lt from Last 3 Months Insurance MEDICARE PART A AND B [facility] MEDICARE PART A AND B [facility] RX [employer] Medicare Part D Advance Directives For more information, please contact: [phone] * Full Code (Latest Code Status on File) Date Activated Date Inactivated Comments 12/18/2019 5:49 PM 12/19/2019 6:38 PM * Full Code Date Activated Date Inactivated Comments 12/18/2019 8:24 AM 12/18/2019 5:49 PM Care Teams Car Shifter Relationship Specialty Start Date End Date Asha Blevins MD [facility] [facility] [place] [address] PCP - General Family Practice 12/18/24
--- OUTSIDE RECORDS SUMMARY | 2025-02-11 10:06 | XMS_ITS | Encounter Summary ---
Author Organization [facility] Address [address] [place] [address] Care Team Providers Care Shearer Operator Name Role Phone Asha Blevins MD Primary Care Provider [phone] [phone] Encounter Details Date Type Department Care Team (Late st Contact Info) Description 12/01/2019 Chart Note [facility] Radiation Therapy [address] [place] [address] [place] [address] [place] [address] Social History Tobacco Use Types [...] Description 02/24/2025 11:15 AM CDT Office Visit [facility] Oncology and Hematology - [place] [address] [facility] [address] [place] [address] Tim Del Real MD [address] [facility] [address] [place] [address] documented as of this encounter Visit Diagnoses Not on filedocumented in this encounter Care Teams Shearer Operator Relationship Specialty Start Date End Date Asha Blevins MD [address] [facility] [address] [place] [phone] PCP - General Family Practice 12/18/24 documented as of this encounter
== END 2025-02-11 09:35 | disposition home or self-care (01) ==
LOC: ANHCARD 09:37
PROVIDERS: PCP Family Medicine; Visit Provider Family Medicine
DX: I48.91 Unspecified atrial fibrillation (principal)
CPT/HCPCS: 78452; 93017; A9502; J2785

== ENCOUNTER 2025-04-07 12:16 | Outpatient (CLI) | payer MEDICARE, SELFPAY ==
--- NOTE | 2025-04-07 12:57 | ECHO_ITS ---
Patient Info Name: Romina Del Cid Age: 79 years : 1945 Gender: Female Ht: 66 in Wt: 170 lbs BSA: 1.91 m2 HR: 57 bpm BP: 173 / 105 mmHg Technical Quality: Good Exam Date: 04/07/2025 1:03 PM Patient Status: O Admit Date: 04/07/2025 Exam Type: CA echo doppler color flow Complete two-dimensional, color flow and Doppler transthoracic echocardiogram is performed. Self Storage Manager: Kimberly Nolasco Attending Provider: Darnell Torres DO Summary 1. Complete two-dimensional, color flow and Doppler transthoracic echocardiogram is performed. 2. Left ventricular chamber dimension is normal. 3. Left ventricular systolic function is normal, estimated at 60-65. 4. The left ventricular diastolic function is abnormal. 5. E/e' 16 is elevated. 6. Left atrial chamber dimension is moderately enlarged. 7. Right atrial chamber dimension is mildly enlarged. 8. There is mild aortic valve sclerosis. 9. There is mild to moderate aortic valve regurgitation. 10. There is moderate to severe mitral valve regurgitation. 11. There is mild to moderate tricuspid valve regurgitation. 12. Severe pulmonary hypertension, estimated pulmonary arterial systolic pressure is 68 mmHg. 13. There is mild pulmonic regurgitation. Left Ventricle E/e' 16 is elevated. Left ventricular chamber dimension is normal. Left ventricular systolic function is normal, estimated at 60-65. The left ventricular diastolic function is abnormal. Right Ventricle Right ventricular chamber dimension is normal. Right ventricular systolic function is normal. Left Atria Left atrial chamber dimension is moderately enlarged. Right Atria Right atrial chamber dimension is mildly enlarged. Aortic Valve The aortic valve is trileaflet. There is mild aortic valve sclerosis. There is no aortic valve stenosis. There is mild to moderate aortic valve regurgitation. Pulmonic Valve There is mild pulmonic regurgitation. Mitral Valve There is no mitral valve stenosis. There is moderate to severe mitral valve regurgitation. Tricuspid Valve There is mild to moderate tricuspid valve regurgitation. Severe pulmonary hypertension, estimated pulmonary arterial systolic pressure is 68 mmHg. Pericardium/Pleural There is no pericardial effusion. Inferior Vena Cava Normal inferior vena cava with >50% collapse upon inspiration consistent with normal right atrial pressure, 5 mmHg. Aorta The aortic root size at the sinus of Valsalva is normal. Left Ventricular Outflow Tract Name Value Normal LVOT 2D LVOT Diameter 1.8 cm LVOT Doppler LVOT Peak Velocity 116 cm/s LVOT Peak Gradient 5 mmHg LVOT Mean Gradient 2 mmHg LVOT VTI 30 cm LVOT Stroke Volume 80 ml LVOT CO 4.6 l/min LVOT CI 2.4 l/min/m2 Pulmonic Valve Name Value Normal RVOT Doppler RVOT Peak Velocity 57 cm/s RVOT Peak Gradient 1 mmHg PV Doppler PV Peak Velocity 152 cm/s PV Peak Gradient 9 mmHg Mitral Valve Name Value Normal MV Regurgitation Doppler MR Peak Gradient 152 mmHg MV Diastolic Function MV E Peak Velocity 109 cm/s MV A Peak Velocity 25 cm/s MV E/A 4.3 MV Decel Time (PW) 215 ms MV Annular TDI MV E/e' (Septal) 20.0 MV E/e' (Lateral) 14.1 MV E/e' (Average) 17.0 Tricuspid Valve Name Value Normal TV Regurgitation Doppler TR Peak Velocity 397 cm/s TR Peak Gradient 63 mmHg Estimated PAP/RSVP RA Pressure 5 mmHg <=5 PA Systolic Pressure 68 mmHg <36 RV Systolic Pressure 68 mmHg <36 Aortic Valve Name Value Normal AV Doppler AV Peak Velocity 115 cm/s AV Peak Gradient 5 mmHg AV Area (Cont Eq Pepe) 2.7 cm2 AV DI (Pepe) 1.01 AV Regurgitation 2D LVOT Area 2.7 cm2 Ventricles Name Value Normal LV Dimensions 2D/MM IVS Diastolic Thickness (2D) 1.0 cm 0.6-1.0 LVID Diastole (2D) 4.5 cm 3.8-5.2 LVIW Diastolic Thickness (2D) 1.0 cm 0.6-0.9 LVID Systole (2D) 2.9 cm 2.2-3.5 LVOT Diameter 1.8 cm LV Mass (2D Cubed) 160.03 g 67.00-162.00 LV Mass Index (2D Cubed) 84 g/m2 43-95 Relative Wall Thickness (2D) 0.46 <=0.42 LV Fractional Shortening/Ejection Fraction 2D/MM LV Fractional Shortening (2D) 36 % 27-45 LV EF (2D Teichholz) 65 % LV Diastolic Volume (4C MOD) 71 ml LV EF (4C MOD) 61 % LV Diastolic Volume (2C MOD) 95 ml LV EF (2C MOD) 64 % LV Diastolic Volume (BP MOD) 82 ml 46-106 LV Diastolic Volume Index (BP MOD) 43 ml/m2 29-61 LV Systolic Volume (BP MOD) 32 ml 14-42 LV Systolic Volume Index (BP MOD) 17 ml/m2 8-24 LV EF (BP MOD) 61 % 54-74 LV Diastolic Length (4C) 6.8 cm LV Systolic Length (4C) 6.2 cm LV Stroke Volume (4C MOD) 43 ml Atria Name Value Normal LA Dimensions LA Volume (4C A-L) 72 ml LA Volume (BP A-L) 54 ml RA Dimensions RA Systolic Major Aubrey Length (4C) 6.2 cm 2.2-2.8 RA Area (4C) 19.4 cm2 <=18.0 Report Signatures
== END 2025-04-07 12:17 | disposition home or self-care (01) ==
LOC: ANHCARD 12:21
PROVIDERS: PCP Family Medicine; Visit Provider Internal Medicine Cardiovascular Disease
DX: I48.91 Unspecified atrial fibrillation (principal); I08.3 Combined rheumatic disorders of mitral, aortic and tricuspid valves
CPT/HCPCS: 93306

== ENCOUNTER 2025-05-25 11:30 | Outpatient (CLI) | payer MEDICARE, SELFPAY ==
[2025-05-25 11:50] LABS: Hematocrit 34.3 % (37.0-47.0); Hemoglobin 11.8 g/dL (12.0-15.0); Immature Granulocyte Percent A 0.4 % (0-0.5); Lymphocytes Absolute Auto 0.64 K/mm3 (0.9-3.2); Mean Corpuscular HGB Conc 34.4 g/dl (32-36); Mean Corpuscular Hemoglobin 37.7 pg (26-34); Mean Corpuscular Volume 109.6 fl (80-100); Nucleated Red Blood Cells Absolute Auto 0.000 K/mm3 (0.0-0.012); Nucleated Red Blood Cells Perc 0.0 % (0.0-0.2); Platelet Count Result 172 k/mm3 (150-375); Red Blood Count 3.13 M/mm3 (4.2-5.4); White Blood Count 2.9 K/mm3 (4.5-10.0)
--- OUTSIDE RECORDS SUMMARY | 2025-05-25 12:21 | XMS_ITS | Clinical Summary ---
[facility] Address [address] [place] [address] Care Team Providers Care Algebraist Name Role Phone Asha Blevins MD Primary Care Provider [phone]- [phone] Allergies No known active allergies Medications TURMERIC [...] EVERY DAY 90 Tablet 3 01/13/2025 Active losartan (COZAAR) 50 mg tablet Take 1 Tablet by mouth daily. 01/07/2025 Active Eliquis 5 mg tablet Take 1 Tablet by mouth 2 times daily. 02/02/2025 Active metoprolol tartrate (LOPRESSOR) 25 mg tablet Take 0.5 Tablets by mouth 2 times daily. 02/02/2025 Active Active Problems Patient Care Coordination No [...] Cancer Staging:Clinical:Stage IIIB(cT4c, cN3a, cM0, G3, ER+, [place]+, HER2-) - Signed by Carly Syed MD on 08/29/2019 Encounters Date Type Department Care Team Description 03/30/2025 External Device Data STL ABSTRACTION Provider, Abstract 02/24/2025 11:15 AM CDT Office Visit 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) from Last 3 Months Family History Relation [...] Sign Reading Time Taken Comments Blood Pressure 144/84 02/24/2025 11:28 AM CDT Pulse 51 02/24/2025 11:24 AM CDT Temperature 36.5 C (97.7 F) 02/24/2025 11:24 AM CDT Respiratory Rate 15 02/24/2025 11:24 AM CDT Oxygen Saturation 96% 02/24/2025 11:24 AM CDT Inhaled Oxygen Concentration - - Weight 78.3 kg (172 lb 9.6 oz) 02/24/2025 11:24 AM CDT Height 167.6 cm (5' 6) 02/13/2024 11:05 AM CDT Body Mass Index 27.86 02/13/2024 11:05 AM CDT Plan of Treatment Upcoming Encounters Date Type Department Care Team (Late st Contact Info) Description 06/04/2025 11:30 AM CDT Office Visit [facility] Oncology and Hematology - [place] [address] [place] [address] [facility] [address] [place] [address] [place] [address] [place] [address] [address] [place] [address] Health Maintenance Due Date Last Done Comments DTAP/TDAP/TD VACCINES (1 - Tdap) 1964 PNEUMOCOCCAL VACCINE 50+ YEARS (1 of 2 - PCV) 05/31/19 64 Traditional Medicare (ACO) Annual Wellness Visit 05/31 ZOSTER VACCINE (1 of 2) 1964 RSV VACCINE (60+ or ) (1 - 1-dose 75+ series) 2020 INFLUENZA VACCINE (#1) 2025 OSTEOPOROSIS SCREENING 08/23/2027 08/23/2022 Medical Devices Implanted Type Area Vice President Of Software Development Device Identifier Shelf Expiration Date Model / Serial / Lot Wind Farm Electrical Systems Designer Clip Surgiclip Ii Beto 11.5in [id number] - [id number] Implanted:Qty : 2 on 12/18/2019 by Carly Syed MD at [facility] Right: Breast [employer] - COVIDIEN [id number] 07/13/2024 [id number] / / [id number] Insurance MEDICARE PART A AND B [facility] SUPP MEDICARE PART A AND B [facility] SUPP RX [id number] Medicare Part D Advance Directives For more information, please contact: [phone] * Full Code (Latest Code Status on File) Date Activated Date Inactivated Comments 12/18/2019 5:49 PM 12/19/2019 6:38 PM * Full Code Date Activated Date Inactivated Comments 12/18/2019 8:24 AM 12/18/2019 5:49 PM Care Teams Algebraist Relationship Specialty Start Date End Date Asha Blevins MD [facility] [address] [place] [address] PCP - General Family Practice 12/18/24
--- OUTSIDE RECORDS SUMMARY | 2025-05-25 12:21 | XMS_ITS | Encounter Summary ---
Author Organization [facility] Address [address] [place] [address] Care Team Providers Care Pilates Coordinator Name Role Phone Asha Blevins MD Primary Care Provider [phone]- [phone] Encounter Details Date Type Department Care Team (Late st Contact Info) Description 12/01/2019 Chart Note [facility] Radiation Therapy [address] [place] [address] [place] [address] [place] [address] Social History Tobacco Use Types [...] Description 06/04/2025 11:30 AM CDT Office Visit [facility] Oncology and Hematology - [place] [address] [facility] [address] [place] [address] Tim Del Real MD [address] [facility] [address] [place] [address] documented as of this encounter Visit Diagnoses Not on filedocumented in this encounter Care Teams Pilates Coordinator Relationship Specialty Start Date End Date Asha Blevins MD [address] [facility] [address] [place] [phone] PCP - General Family Practice 12/18/24 documented as of this encounter
== END 2025-05-25 11:31 | disposition home or self-care (01) ==
PROVIDERS: PCP Family Medicine; Visit Provider Internal Medicine Hematology & Oncology
DX: C77.3 Secondary and unspecified malignant neoplasm of axilla and upper limb lymph nodes (principal); C50.811 Malignant neoplasm of overlapping sites of right female breast
CPT/HCPCS: 36415; 85025; 86300

== ENCOUNTER 2025-08-31 14:17 | Outpatient (CLI) | payer MEDICARE, SELFPAY ==
--- NOTE | ~2025-08-31 | MM_ITS ---
EXAMINATION: MM screening paul LT w cheryl INDICATION: Asymptomatic, referred for screening mammogram. History of Right mastectomy . COMPARISON: 05/05/2024 through 01/25/2021 TECHNIQUE: Digital Breast Tomosynthesis CC, MLO views were obtained of LEFT breast with computer-aided detection to assist in interpretation of the study. FINDINGS: There are scattered areas of fibroglandular density. No focal dominant mass, architectural distortion, or suspicious microcalcifications are identified. There are no features to suggest malignancy. IMPRESSION: 1. No mammographic evidence of malignancy. 2. Recommend routine screening mammography in one year. BI-RADS Category 1: Negative Reviewed, dictated and finalized at location B. S FINISHER
== END 2025-08-31 14:18 | disposition home or self-care (01) ==
PROVIDERS: PCP Family Medicine; Visit Provider Internal Medicine Hematology & Oncology
DX: Z12.31 Encounter for screening mammogram for malignant neoplasm of breast (principal)
CPT/HCPCS: 77063; 77067

== ENCOUNTER 2025-09-17 09:54 | Outpatient (CLI) | payer MEDICARE, SELFPAY ==
--- NOTE | 2025-09-17 10:08 | ECHO_ITS ---
Patient Info Name: Romina Del Cid Age: 80 years : 1945 Gender: Female Ht: 66 in Wt: 170 lbs BSA: 1.91 m2 HR: 67 bpm BP: 138 / 75 mmHg Technical Quality: Good Exam Date: 09/17/2025 10:10 AM Patient Status: O Admit Date: 09/17/2025 Exam Type: CA echo doppler color flow Complete two-dimensional, color flow and Doppler transthoracic echocardiogram is performed. Insurance Agency Manager: Janene Fu Attending Provider: Darnell Torres DO Summary 1. Complete two-dimensional, color flow and Doppler transthoracic echocardiogram is performed. 2. Left ventricular chamber dimension is normal. 3. Left ventricular systolic function is normal, estimated at 65-70. 4. The left ventricular diastolic function is abnormal. 5. E/e' 13 is mildly elevated. 6. Left atrial chamber dimension is moderately enlarged. 7. Right atrial chamber dimension is mildly enlarged. 8. There is mild aortic valve sclerosis. 9. There is mild to moderate aortic valve regurgitation. 10. There is mild to moderate mitral valve regurgitation. 11. There is mild tricuspid valve regurgitation. 12. Mild pulmonary hypertension, estimated pulmonary arterial systolic pressure is 47 mmHg. Left Ventricle E/e' 13 is mildly elevated. Left ventricular chamber dimension is normal. Left ventricular systolic function is normal, estimated at 65-70. The left ventricular diastolic function is abnormal. Right Ventricle Right ventricular chamber dimension is normal. Right ventricular systolic function is normal. Left Atria Left atrial chamber dimension is moderately enlarged. Right Atria Right atrial chamber dimension is mildly enlarged. Aortic Valve The aortic valve is trileaflet. There is mild aortic valve sclerosis. There is no aortic valve stenosis. There is mild to moderate aortic valve regurgitation. Pulmonic Valve There is no pulmonic regurgitation. Mitral Valve There is no mitral valve stenosis. There is mild to moderate mitral valve regurgitation. Tricuspid Valve There is mild tricuspid valve regurgitation. Mild pulmonary hypertension, estimated pulmonary arterial systolic pressure is 47 mmHg. Pericardium/Pleural There is no pericardial effusion. Inferior Vena Cava Normal inferior vena cava with >50% collapse upon inspiration consistent with normal right atrial pressure, 5 mmHg. Aorta The aortic root size at the sinus of Valsalva is normal. Left Ventricular Outflow Tract Name Value Normal LVOT 2D LVOT Diameter 2.0 cm LVOT Doppler LVOT Peak Velocity 119 cm/s LVOT Peak Gradient 4 mmHg LVOT Mean Gradient 3 mmHg LVOT VTI 26 cm LVOT VTI/AV VTI Ratio 0.7 LVOT Stroke Volume 80 ml LVOT CO 5.4 l/min LVOT CI 2.8 l/min/m2 Pulmonic Valve Name Value Normal RVOT Doppler RVOT Peak Velocity 82 cm/s RVOT Peak Gradient 3 mmHg PV Doppler PV Peak Velocity 138 cm/s PV Peak Gradient 8 mmHg Mitral Valve Name Value Normal MV Regurgitation Doppler MR Peak Gradient 138 mmHg MV Diastolic Function MV E Peak Velocity 106 cm/s MV Decel Time (PW) 148 ms Tricuspid Valve Name Value Normal TV Regurgitation Doppler TR Peak Velocity 322 cm/s TR Peak Gradient 35 mmHg Estimated PAP/RSVP RA Pressure 5 mmHg <=5 PA Systolic Pressure 47 mmHg <36 RV Systolic Pressure 47 mmHg <36 Aorta Name Value Normal Ascending Aorta Ao Root Diameter (MM) 3.2 cm Ao Root Diam Index (MM) 1.7 cm/m2 Aortic Valve Name Value Normal AV Doppler AV Peak Velocity 163 cm/s AV Peak Gradient 9 mmHg AV Mean Gradient 5 mmHg AV VTI 34 cm AV Area (Cont Eq VTI) 2.3 cm2 >=3.0 AV Area (Cont Eq Pepe) 2.3 cm2 AV DI (Pepe) 0.73 AV Regurgitation 2D LVOT Area 3.1 cm2 Ventricles Name Value Normal LV Dimensions 2D/MM IVS Diastolic Thickness (2D) 1.1 cm 0.6-1.0 IVS Diastole Thickness (MM) 1.0 cm 0.6-0.9 LVID Diastole (2D) 4.2 cm 3.8-5.2 LVID Diastole (MM) 4.3 cm 3.8-5.2 LVIW Diastolic Thickness (2D) 1.1 cm 0.6-0.9 LVIW Diastolic Thickness (MM) 0.8 cm 0.6-0.9 LVID Systole (2D) 2.1 cm 2.2-3.5 LVID Systole (MM) 2.2 cm 2.2-3.5 LVOT Diameter 2.0 cm LV Mass (2D Cubed) 154.38 g 67.00-162.00 LV Mass Index (2D Cubed) 81 g/m2 43-95 Relative Wall Thickness (2D) 0.52 <=0.42 LV Mass (MM Cubed) 128.00 g 67.00-162.00 LV Mass Index (MM Cubed) 67 g/m2 43-95 Relative Wall Thickness (MM) 0.38 LV Fractional Shortening/Ejection Fraction 2D/MM LV Fractional Shortening (2D) 51 % 27-45 LV Fractional Shortening (MM) 48 % 27-45 LV EF (MM Teichholz) 80 % LV EF (2D Teichholz) 82 % LV Diastolic Volume (4C MOD) 68 ml LV EF (4C MOD) 72 % LV Diastolic Volume (2C MOD) 73 ml LV EF (2C MOD) 74 % LV Diastolic Volume (BP MOD) 71 ml 46-106 LV Diastolic Volume Index (BP MOD) 37 ml/m2 29-61 LV Systolic Volume (BP MOD) 19 ml 14-42 LV Systolic Volume Index (BP MOD) 10 ml/m2 8-24 LV EF (BP MOD) 73 % 54-74 LV Diastolic Length (4C) 7.2 cm LV Systolic Length (4C) 5.5 cm LV Stroke Volume (4C MOD) 49 ml Atria Name Value Normal LA Dimensions LA Dimension (MM) 3.9 cm 2.7-3.8 LA Volume (4C A-L) 67 ml LA Volume (BP A-L) 66 ml RA Dimensions RA Systolic Major [place] Length (4C) 5.6 cm 2.2-2.8 RA Area (4C) 16.7 cm2 <=18.0 Report Signatures
== END 2025-09-17 09:55 | disposition home or self-care (01) ==
PROVIDERS: PCP Family Medicine; Visit Provider Internal Medicine Cardiovascular Disease
DX: I08.3 Combined rheumatic disorders of mitral, aortic and tricuspid valves (principal)
CPT/HCPCS: 93306